=== PATIENT | female | born 1985 | race American Indian/Alaskan Native ===

== ENCOUNTER 2017-02-17 06:55 | Emergency (ER) | payer MEDICAID ==
[2017-02-17 06:56] VITALS: BMI 26.6
[2017-02-17] MEDS ORDERED: DiphenhydrAMINE 50 mg/ml Inj IVP STA (07:54)
--- NOTE | 2017-02-17 08:04 | ED PDOC ---
Arrival/HPI - General Chief Complaint: Headache Time Seen by Provider: 02/17/17 07:48 Historian: Patient - History of Present Illness Narrative History of Present Illness (Text): 02/17/17 07:51 Sendy Vega is a 31 year old female who presents to the emergency department complaining of a headache since this morning. Patient states that her headache is to the back of her head and has taken Tylenol which brought no relief. She also notes that she has no appetite. Patient endorses that she took Heroin and Cocaine 2 days ago but confirms that she has not taken any drugs today. Patient denies any fever, chills, chest pain, shortness of breath, nausea, vomiting, diarrhea, urinary symptoms, back pain, neck pain, or any other complaints. PMD: Dr. Zhu Time/Duration: 4-6 hours Symptom Onset: Gradual Symptom Course: Unchanged Activities at Onset: Rest Context: Home Past Medical History - Provider Review Nursing Documentation Reviewed: Yes - Infectious Disease Hx of Infectious Diseases: None - Tetanus Immunization Tetanus Immunization: Unknown - Reproductive Menopause: No - Past Medical History Past Medical History: No Previous - Cardiac Hx Hypertension: No - Pulmonary Hx Asthma: Yes - Neurological Hx Seizures: No - HEENT Hx HEENT Disorder: No - Endocrine/Metabolic Other/Comment: Prev h/o elevated prolactin - Hematological/Oncological Hx Cancer: No Hx Hepatitis C: Yes - Integumentary Hx Dermatological Disorder: No - Musculoskeletal/Rheumatological Hx Musculoskeletal Disorders: No Hx Falls: No - Gastrointestinal Hx Gastrointestinal Disorders: No - Genitourinary/Gynecological Hx Sexually Transmitted Diseases: No - Psychiatric Hx Anxiety: Yes Hx Bipolar Disorder: Yes Hx Depression: Yes Hx Substance Use: Yes (IVDU 1 day ago) - Anesthesia Hx Anesthesia: No - Suicidal Assessment Feels Threatened In Home Enviroment: No Family/Social History - Physician Review Nursing Documentation Reviewed: Yes Family/Social History: No Known Family HX Smoking Status: Light Smoker < 10 Cigarettes Daily Hx Alcohol Use: No Hx Substance Use: Yes (IVDU 1 day ago) Substance used: Percocet from the streets, heroin, cocaine Hx Substance Use Treatment: Yes Allergies/Home Meds Allergies/Adverse Reactions: Allergies No Known Allergies Allergy (Verified 02/17/17 07:09) Review of Systems - Review of Systems Constitutional: absent: Fevers, Night Sweats Eyes: absent: Vision Changes ENT: absent: Hearing Changes Respiratory: absent: SOB Cardiovascular: absent: Chest Pain Gastrointestinal: absent: Abdominal Pain, Diarrhea, Nausea, Vomiting Genitourinary Female: absent: Urine Output Changes Musculoskeletal: absent: Back Pain Skin: absent: Pruritis Neurological: Headache Endocrine: absent: Polyuria Hemo/Lymphatic: absent: Easy Bleeding Psychiatric: absent: Depression Physical Exam Vital Signs Reviewed: Yes Vital Signs Temp Pulse Resp BP Pulse Ox 02/17/17 08:40 97.9 F 74 19 112/74 98 02/17/17 07:52 86 16 121/66 96 02/17/17 06:59 99.0 F 102 H 16 129/90 96 Temperature: Afebrile Blood Pressure: Normal Pulse: Tachycardic Respiratory Rate: Normal Appearance: Positive for: Well-Appearing, Non-Toxic, Comfortable Pain Distress: None Mental Status: Positive for: Alert and Oriented X 3 - Systems Exam Head: No: Tenderness (No temporal head tenderness; Full ROM) Pupils: Present: PERRL, Other (No photophobia) Extroacular Muscles: Present: EOMI Conjunctiva: Present: Normal Mouth: Present: Moist Mucous Membranes Neck: Present: Other (No tenderness to neck). No: Meningeal Signs, MIDLINE TENDERNESS, Paraspinal Tenderness Respiratory/Chest: Present: Clear to Auscultation, Good Air Exchange. No: Respiratory Distress, Accessory Muscle Use Cardiovascular: Present: Regular Rate and Rhythm, Normal S1, S2. No: Murmurs Abdomen: Present: Normal Bowel Sounds. No: Tenderness, Distention, Peritoneal Signs Back: Present: Normal Inspection Upper Extremity: Present: Normal Inspection. No: Cyanosis, Edema Lower Extremity: Present: Normal Inspection. No: Edema Neurological: Present: GCS=15, CN II-XII Intact, Speech Normal, Motor Func Grossly Intact, Normal Sensory Function, Normal Cerebellar Funct, Norm Deep Tendon Reflexes, Gait Normal, Memory Normal, Normal 2Pt Descrimination Skin: Present: Warm, Dry, Normal Color. No: Rashes Psychiatric: Present: Alert, Oriented x 3, Normal Insight, Normal Concentration Medical Decision Making ED Course and Treatment: 02/17/17 07:51 Impression: 31 year old female complaining of a headache since this morning. Differential Diagnosis included but are not limited to: Tension Headache Plan: -- Benadryl, Reglan, Toradol -- Reassess and disposition Prior Visits: Notes and results from previous visits were reviewed. Patient last seen in the ED on 02/01/17 for a sore throat for one day. Patient was sent home. Progress Notes: 02/17/17 10:00 Patient is feeling better. No headache. Will discharge her home with PMD or clinic f/u. - Medication Orders Current Medication Orders: Discontinued Medications Diphenhydramine HCl (Benadryl) 50 mg IVP STAT STA Stop: 02/17/17 07:55 Last Admin: 02/17/17 08:17 Dose: 50 MG IVP Administration Document 02/17/17 08:17 GMI (Rec: 02/17/17 08:17 [facility]MI [email or web address]) Charges for Administration # of IVP Administrations 1 Ketorolac Tromethamine (Toradol) 15 mg IVP STAT STA Stop: 02/17/17 07:55 Last Admin: 02/17/17 08:18 Dose: 15 MG IVP Administration Document 02/17/17 08:18 GMI (Rec: 02/17/17 08:18 [email or web address]) Charges for Administration # of IVP Administrations 1 Metoclopramide HCl (Reglan) 10 mg IVP STAT STA Stop: 02/17/17 07:55 Last Admin: 02/17/17 08:13 Dose: 10 MG IVP Administration Document 02/17/17 08:13 GMI (Rec: 02/17/17 08:17 [email or web address]) Charges for Administration # of IVP Administrations 1 - Scribe Statement The provider has reviewed the documentation as recorded by the Johnnie Elias Provider Scribe Attestation: All medical record entries made by the Kirstinibosman were at my direction and personally dictated by me. I have reviewed the chart and agree that the record accurately reflects my personal performance of the history, physical exam, medical decision making, and the department course for this patient. I have also personally directed, reviewed, and agree with the discharge instructions and disposition. Disposition/Present on Arrival - Present on Arrival Any Indicators Present on Arrival: No History of DVT/PE: No History of Uncontrolled Diabetes: No Urinary Catheter: No History of Decub. Ulcer: No History Surgical Site Infection Following: None - Disposition Have Diagnosis and Disposition been Completed?: Yes Diagnosis: Headache Disposition: HOME/ ROUTINE Disposition Time: 10:01 Patient Plan: Discharge Patient Problems: Current Active Problems Problem Status Diagnosed Headache Acute Lethargy Acute Condition: IMPROVED Discharge Instructions (ExitCare): Acute Headache (DC) Additional Instructions: Ms Vega, thank you for letting us take care of you today. Your provider was Dr. Clark. You were treated for Headache. The emergency medical care you received today was directed at your acute symptoms. If you were prescribed any medication , please fill it and take as directed. It may take several days for your symptoms to resolve. Return to the Emergency Department if your symptoms worsen , do not improve, or if you have any other problems. Please contact your doctor or call one of the physicians/clinics you have been referred to that are listed on the Patient Visit Information form that is included in your discharge packet. Bring any paperwork you were given at discharge with you along with any medications you are taking to your follow up visit. Our treatment cannot replace ongoing medical care by a primary care provider (PCP) outside of the emergency department. Thank you for allowing the [facility] team to be part of your care today. If you had an X-Ray or CT scan: A Radiologist will review the ED reading if any change in treatment is needed we will contact you. If you had a blood, urine, or wound culture: It will take several days for the results, if any change in treatment is needed we will contact you. If you had an STI test: It will take 48 hours for the results. Please call after 1 week if you have not heard back. Prescriptions: Ibuprofen [Motrin] 600 mg PO Q6 PRN #30 tab PRN Reason: Pain, Moderate (4-7) Referrals: PCP,NO [Primary Care Provider] - [facility], [Non-Staff] - Follow up with primary [facility] [place] [Outside] - Follow up with primary Forms: WORK NOTE
[2017-02-17 08:41] VITALS: TEMP 97.9
[2017-02-17 10:11] VITALS: BP 101/67; PULSE 78; RESP 18; O2SAT 99
== END 2017-02-17 10:11 | disposition home or self-care (01) ==
LOC: ED 06:55
DX: R51 Headache (principal)
CPT/HCPCS: 96374; 96375; 99285; J1200; J1885; J2765

== ENCOUNTER 2017-03-21 05:55 | Inpatient (IN) | payer MEDICAID ==
[2017-03-21 05:56] VITALS: BMI 26.6
--- NOTE | 2017-03-21 06:25 | ED PDOC ---
Arrival/HPI - General Chief Complaint: Substance Abuse Time Seen by Provider: 03/21/17 06:07 - History of Present Illness Narrative History of Present Illness (Text): 03/21/17 06:22 Patient presents complaining of intentional overdose in a suicidal gesture by taking gabapentin and oxycodone unknown amount of pills around midnight she denies any chest pain or shortness of breath or abdominal pain or fever or chills Past Medical History - Provider Review Nursing Documentation Reviewed: Yes - Travel History Have you recently traveled outside [place] w/in the past 3 mons?: No - Infectious Disease Hx of Infectious Diseases: None - Tetanus Immunization Tetanus Immunization: Unknown - Past Medical History Past Medical History: No Previous - Cardiac Hx Hypertension: No - Pulmonary Hx Asthma: Yes - Neurological Hx Seizures: No - HEENT Hx HEENT Disorder: No - Endocrine/Metabolic Other/Comment: Prev h/o elevated prolactin - Hematological/Oncological Hx Cancer: No Hx Hepatitis C: Yes - Integumentary Hx Dermatological Disorder: No - Musculoskeletal/Rheumatological Hx Musculoskeletal Disorders: No Hx Falls: No - Gastrointestinal Hx Gastrointestinal Disorders: No - Genitourinary/Gynecological Hx Sexually Transmitted Diseases: No - Psychiatric Hx Anxiety: Yes Hx Bipolar Disorder: Yes Hx Depression: Yes Hx Substance Use: Yes (IVDU 1 day ago) - Anesthesia Hx Anesthesia: No - Suicidal Assessment Feels Threatened In Home Enviroment: No Family/Social History - Physician Review Nursing Documentation Reviewed: Yes Family/Social History: No Known Family HX Smoking Status: Light Smoker < 10 Cigarettes Daily Hx Alcohol Use: No Hx Substance Use: Yes (IVDU 1 day ago) Substance used: Percocet from the streets, heroin, cocaine Hx Substance Use Treatment: Yes Allergies/Home Meds Allergies/Adverse Reactions: Allergies No Known Allergies Allergy (Verified 03/21/17 09:17) Home Medications: Home Meds Medication Instructions Recorded Confirmed Alprazolam [Xanax] 0.5 mg PO QID 03/21/17 03/21/17 Gabapentin [Neurontin] 300 mg PO TID 03/21/17 03/21/17 Methadone HCl [Methadose] 50 mg PO DAILY 03/21/17 03/21/17 Paliperidone Palmitate [Invega 156 mg IM Q30D 03/21/17 03/21/17 Sustenna] Risperidone 2 mg PO BID 03/21/17 03/21/17 Review of Systems - Review of Systems Constitutional: Normal Eyes: Normal ENT: Normal Respiratory: Normal Cardiovascular: Normal Gastrointestinal: Normal Genitourinary Female: Normal Musculoskeletal: Normal Skin: Normal Neurological: absent: Dizziness Endocrine: Normal Hemo/Lymphatic: Normal Psychiatric: Suicidal Ideation Physical Exam Vital Signs Reviewed: Yes Vital Signs Temp Pulse Resp BP Pulse Ox 03/21/17 14:19 98.2 F 87 16 111/63 99 03/21/17 13:35 92 H 18 97/72 L 98 03/21/17 12:00 85 19 107/63 99 03/21/17 10:42 92 H 18 114/73 97 03/21/17 09:38 97 H 17 120/69 95 03/21/17 09:03 97 H 16 114/68 96 03/21/17 08:26 75 17 124/79 99 03/21/17 07:23 71 16 124/70 97 03/21/17 06:22 99.8 F H 113 H 24 133/81 98 Temperature: Afebrile Blood Pressure: Normal Pulse: Regular Respiratory Rate: Normal Appearance: Positive for: Well-Appearing, Non-Toxic, Comfortable Pain Distress: None Mental Status: Positive for: Lethargic - Systems Exam Head: Present: Atraumatic, Normocephalic Pupils: Present: PERRL Extroacular Muscles: Present: EOMI Conjunctiva: Present: Normal Mouth: Present: Moist Mucous Membranes Neck: Present: Normal Range of Motion Respiratory/Chest: Present: Clear to Auscultation, Good Air Exchange. No: Respiratory Distress, Accessory Muscle Use Cardiovascular: Present: Regular Rate and Rhythm, Normal S1, S2. No: Murmurs Abdomen: Present: Normal Bowel Sounds. No: Tenderness, Distention, Peritoneal Signs Back: Present: Normal Inspection Upper Extremity: Present: Normal Inspection. No: Cyanosis, Edema Lower Extremity: Present: Normal Inspection. No: Edema Neurological: Present: GCS=15, CN II-XII Intact, Speech Normal Skin: Present: Warm, Dry, Normal Color. No: Rashes Psychiatric: Present: Alert, Oriented x 3, Normal Insight, Normal Concentration , Suicidal Ideation Medical Decision Making ED Course and Treatment: 03/22/17 00:[address] gambino accepts case case d/w dr burks will have icu consult, most likely accept case for lethargy - Lab Interpretations Lab Results: 03/21/17 06:35 03/21/17 06:35 Lab Results 03/21/17 06:35: Alcohol, Quantitative < 10 03/21/17 06:35: Salicylates < 1 L, Acetaminophen < 10.0 L 03/21/17 06:35: Urine Opiates Screen Positive H, Urine Methadone Screen Positive H, Ur Barbiturates Screen Negative, Ur Phencyclidine Scrn Negative, Ur Amphetamines Screen Negative, U Benzodiazepines Scrn Negative, U Oth Cocaine Metabols Negative, U Cannabinoids Screen Negative 03/21/17 06:35: Sodium 138, Potassium 4.1, Chloride 101, Carbon Dioxide 28, Anion Gap 13, BUN 17, Creatinine 0.8, Est GFR ( Amer) > 60, Est GFR (Non- Af Amer) > 60, Random Glucose 139 H, Calcium 8.8, Total Bilirubin 0.4, AST 34, ALT 42, Alkaline Phosphatase 73, Total Protein 7.6, Albumin 3.8, Globulin 3.8, Albumin/Globulin Ratio 1.0 L 03/21/17 06:35: Urine Color Yellow, Urine Appearance Clear, Urine pH 7.0, Ur Specific [place] 1.010, Urine Protein Negative, Urine Glucose (UA) Negative, Urine Ketones Negative, Urine Blood Small H, Urine Nitrate Negative, Urine Bilirubin Negative, Urine Urobilinogen 0.2, Ur Leukocyte Esterase Negative, Urine RBC 1 - 3, Urine WBC 1 - 3, Ur Epithelial Cells 3 - 4, Urine Bacteria Few , Urine HCG, Qual Negative 03/21/17 06:35: WBC 7.9, RBC 4.71, Hgb 11.0 L, Hct 35.6 L, MCV 75.6 L, MCH 23.4 L, MCHC 30.9 L, RDW 14.0, Plt Count 242, MPV 9.1, Gran % 67.8, Lymph % (Auto) 22.3, [place] % (Auto) 7.8 H, Eos % (Auto) 1.8, Baso % (Auto) 0.3, Gran # 5.33, Lymph # 1.8, [place] # 0.6, Eos # 0.1, Baso # 0.02 - Medication Orders Current Medication Orders: Sodium Chloride (Sodium Chloride 0.9%) 1,000 mls @ 150 mls/hr IV .Q6H40M TOM Last Admin: 03/21/17 22:36 Dose: Not Given Non-Admin Reason: Patient Refused Lorazepam (Ativan) 2 mg IM Q6H PRN; Protocol PRN Reason: Anxiety Last Admin: 03/21/17 20:55 Dose: 2 mg Re-Assess: Reassess Psych Meds Document 03/21/17 21:25 EMANUEL (Rec: 03/21/17 22:35 EMANUEL [id number]) Reassess Psych Med Ineffective-LIP notifed Pantoprazole Sodium (Protonix Ec Tab) 40 mg PO 0630 [facility] Ziprasidone (Geodon Inj) 20 mg IM Q6H PRN; Protocol PRN Reason: Agitation Last Admin: 03/21/17 22:19 Dose: 20 mg Discontinued Medications Charcoal (Actidose 50 Gm/240 Ml Susp) 50 gm PO STAT STA Stop: 03/21/17 06:59 Last Admin: 03/21/17 07:36 Dose: 50 gm Sodium Chloride (Sodium Chloride 0.9%) 1,000 mls @ 999 mls/hr IV .Q1H1M STA Stop: 03/21/17 13:13 Last Admin: 03/21/17 12:15 Dose: 999 mls/hr Methadone HCl (Methadone) 20 mg PO ONCE ONE Stop: 03/21/17 17:53 Last Admin: 03/21/17 18:20 Dose: Methadone HCl (Methadone) 20 mg PO ONCE ONE Stop: 03/21/17 18:16 Last Admin: 03/21/17 18:11 Dose: 20 mg Re-Assess: MAR Pain Assessment Document 03/21/17 19:11 CASSI (Rec: 03/21/17 19:32 CASSI [facility] [id number] Pain Reassessment Is this a pain reassessment? Yes Sleep Is patient sleeping during reassessment? No Presence of Pain Presence of Pain No Naloxone HCl (Narcan) 0.4 mg IVP STAT STA Stop: 03/21/17 06:58 Last Admin: 03/21/17 07:21 Dose: 0.4 mg Pneumococcal Polyvalent Vaccine (Pneumovax 23 Vaccine) 0.5 ml IM .ONCE ONE Stop: 03/21/17 17:05 Disposition/Present on Arrival - Present on Arrival Any Indicators Present on Arrival: No History of DVT/PE: No History of Uncontrolled Diabetes: No Urinary Catheter: No History of Decub. Ulcer: No History Surgical Site Infection Following: None - Disposition Have Diagnosis and Disposition been Completed?: Yes Diagnosis: Drug overdose Disposition: HOSPITALIZED Disposition Time: 07:30 Condition: FAIR
[2017-03-21 06:44] LABS: ADD MANUAL DIFF? NO
[2017-03-21 06:51] LABS: URINE BILIRUBIN NEGATIVE (NEGATIVE); URINE BLOOD SMALL (NEGATIVE); URINE GLUCOSE (UA) NEGATIVE (NEGATIVE); URINE KETONE NEGATIVE (NEGATIVE); URINE LEUKOCYTE ESTERASE NEGATIVE Leu/uL (NEGATIVE); URINE PROTEIN NEGATIVE mg/dL (<30 mg/dL); URINE UROBILINOGEN 0.2 E.U./dL (<1 E.U./dL)
[2017-03-21] MEDS ORDERED: Naloxone 0.4 mg/ml Inj (Adult) IVP STA (06:57)
[2017-03-21] MEDS ORDERED: Charcoal 50 gm/240 ml Susp PO STA (06:58)
[2017-03-21 07:01] LABS: URINE APPEARANCE CLEAR (CLEAR); URINE COLOR YELLOW (YELLOW)
[2017-03-21 07:02] LABS: ALKALINE PHOSPHATASE 73 U/L (38-133); ALT/SGPT 42 U/L (7-56); AST/SGOT 34 U/L (15-39); BILIRUBIN,TOTAL 0.4 mg/dL (0.2-1.3); BLOOD UREA NITROGEN 17 mg/dL (7-21); CALCIUM 8.8 mg/dL (8.4-10.5); CARBON DIOXIDE 28 mmol/L (21-33); CHLORIDE 101 mmol/L (98-107); GFR AFRICAN-AMERICAN > 60; GLUCOSE,RANDOM 139 mg/dL (70-110); POTASSIUM 4.1 mmol/L (3.6-5.0); SODIUM 138 mmol/L (132-148); TOTAL PROTEIN 7.6 g/dL (5.8-8.3)
[2017-03-21 07:05] LABS: URINE BACTERIA FEW (NEG)
[2017-03-21 07:12] LABS: BASO # 0.02 K/mm3 (0.0-2.0); BASO % 0.3 % (0.0-3.0); EOS # 0.1 (0.0-0.7); EOS % 1.8 % (1.5-5.0); GRAN # 5.33 (1.4-6.5); GRAN % 67.8 % (50.0-68.0); HEMATOCRIT 35.6 % (36.0-48.0); LYMPH # 1.8 (1.2-3.4); LYMPH % 22.3 % (22.0-35.0); MEAN CELL VOLUME 75.6 fL (80.0-105.0); MEAN CORPUSCULAR HEMOGLOBIN 23.4 pg (25.0-35.0); MEAN CORPUSCULAR HGB CONC 30.9 g/dl (31.0-37.0); MEAN PLATELET VOLUME 9.1 fl (7.0-11.0); MONO # 0.6 (0.1-0.6); MONO % 7.8 % (1.0-6.0); PLATELET COUNT 242 10^3/uL (120.0-450.0); WHITE BLOOD COUNT 7.9 10^3/ul (4.5-11.0)
[2017-03-21 09:12] LABS: PHOSPHOROUS 3.4 mg/dL (2.5-4.5)
[2017-03-21 09:30] LABS: TROPONIN I < 0.01 ng/mL
--- NOTE | 2017-03-21 10:44 | CP.PCM.HP ---
<Lonnie Dee - Last Filed: 03/21/17 11:01> History of Present Illness - History of Present Illness History of Present Illness: 31 F with pmh of bipolar disorder, Hepatiis C, STD's, opioid use disorder, cocaine use, amphetamine use, depression with suicidal ideation presents with drug overdose with intent suicide. Patient is very lethargic therefore HPI is very limited and taken from prior notes and nurses. As per nurses she overdosed on Gabapentin and oxycodone around 12am with intent suicide. She than called the ambulance and was brought here to the ED fully alert walking into the ED. She subsequently turned very lethargic. When I attempted to ask her what she overdosed on she said "some pills and Ambien." In the ED CBC, CMP and urine tox was done. Utox was positive for Opiates and Methadone, and negative for Acetaminophen and Salicylates. Hemodynamically stable. EKG shows sinus tachy 104 BPM. 1 dose of Activated charcoal and Narcan was administered. Obtained from prior records on 09/01/16: PMH: bipolar disorder, opioid use disorder, cocaine use, amphetamine use, depression with suicidal ideation ALLERGY: NKDA MEDS:Denies HOSPITALIZATION: She was hospitalized multiple times in the past. FAMILY HISTORY: Not significant SOCIAL HISTORY: Smokes 5 cig/ day. Drinks alcohol but cannot quantify. Use heroin, cocaine and amphetamine but unsure how much. Present on Admission - Present on Admission Any Indicators Present on Admission: No Review of Systems - Review of Systems Systems not reviewed;Unavailable: Intoxicated Past Patient History - Infectious Disease Hx of Infectious Diseases: None - Tetanus Immunizations Tetanus Immunization: Unknown - Past Medical History & Family History Past Medical History?: Yes - Past Social History Smoking Status: Light Smoker < 10 Cigarettes Daily - CARDIAC Hx Hypertension: No - PULMONARY Hx Asthma: Yes - NEUROLOGICAL Hx Seizures: No - HEENT Hx HEENT Problems: No - ENDOCRINE/METABOLIC Other/Comment: Prev h/o elevated prolactin - HEMATOLOGICAL/ONCOLOGICAL Hx Cancer: No Hx Hepatitis C: Yes - INTEGUMENTARY Hx Dermatological Problems: No - MUSCULOSKELETAL/RHEUMATOLOGICAL Hx Musculoskeletal Disorders: No Hx Falls: No - GASTROINTESTINAL Hx Gastrointestinal Disorders: No - GENITOURINARY/GYNECOLOGICAL Hx Sexually Transmitted Disorders: No - PSYCHIATRIC Hx Anxiety: Yes Hx Bipolar Disorder: Yes Hx Depression: Yes Hx Substance Use: Yes (IVDU 1 day ago) - SURGICAL HISTORY Hx Surgeries: No - ANESTHESIA Hx Anesthesia: No Meds Allergies/Adverse Reactions: Allergies Allergy/AdvReac Type Severity Reaction Status Date / Time No Known Allergies Allergy Verified 03/21/17 09:17 Physical Exam - Constitutional Appears: No Acute Distress - Head Exam Head Exam: ATRAUMATIC, NORMAL INSPECTION, NORMOCEPHALIC - Eye Exam Eye Exam: EOMI, Normal appearance, PERRL Pupil Exam: NORMAL ACCOMODATION, PERRL. absent: Miosis - ENT Exam ENT Exam: Mucous Membranes Moist, Normal Exam - Neck Exam Neck exam: Positive for: Normal Inspection - Respiratory Exam Respiratory Exam: Clear to Auscultation Bilateral, NORMAL BREATHING PATTERN. absent: Rales, Wheezes - Cardiovascular Exam Cardiovascular Exam: REGULAR RHYTHM, RRR, +S1, +S2 - GI/Abdominal Exam GI & Abdominal Exam: Normal Bowel Sounds, Soft. absent: Tenderness - Extremities Exam Extremities exam: Positive for: normal inspection - Back Exam Back exam: NORMAL INSPECTION - Neurological Exam Neurological exam: Altered - Psychiatric Exam Psychiatric exam: Suicidal Ideation - Skin Skin Exam: Dry, Intact, Normal Color, Warm Results - Vital Signs Recent Vital Signs: Last Vital Signs Temp 99.8 F H 03/21/17 06:22 Pulse 97 H 03/21/17 09:38 Resp 17 03/21/17 09:38 BP 120/69 03/21/17 09:38 Pulse Ox 95 03/21/17 09:38 - Labs Result Diagrams: 03/21/17 06:35 03/21/17 06:35 Labs: Laboratory Results - last 24 hr 03/21/17 03/21/17 08:50 08:50 Phosphorus 3.4 Magnesium 2.0 Troponin I < 0.01 TSH 3rd Generation 0.94 Assessment & Plan - Assessment and Plan (Free Text) Assessment: 31 F with pmh of bipolar disorder, Hepatiis C, STD's, opioid use disorder, cocaine use, amphetamine use, depression with suicidal ideation presents with drug overdose with intent suicide. 1. Drug Overdose - with Gabapentin & Oxycodone & Ambien? - Poison control was called and spoke to [employer] which recommended activated charcoal and Narcan with supportive care - Activated charcoal and Narcan was administered in the ED - Activated charcoal - aspiration precautions - NPO - Psychiatry consulted for recs - Neuro checks and vitals Q2H - EKG: Sinus tachy 104 bpm - 1:1 observation for suicidal ideation - Daily labs 2. GI/DVT ppx - NPO and SCDs Case and plan was seen, reviewed, and discussed in detail with Dr Stark <Cristofer Stark - Last Filed: 03/21/17 15:59> Results - Vital Signs Recent Vital Signs: Last Vital Signs Temp 98.2 F 03/21/17 14:19 Pulse 87 03/21/17 14:19 Resp 16 03/21/17 14:19 BP 111/63 03/21/17 14:19 Pulse Ox 99 03/21/17 14:19 - Labs Result Diagrams: 03/21/17 06:35 03/21/17 06:35 Labs: Laboratory Results - last 24 hr 03/21/17 03/21/17 08:50 08:50 Phosphorus 3.4 Magnesium 2.0 Troponin I < 0.01 TSH 3rd Generation 0.94 Attending/Attestation - Attestation I have personally seen and examined this patient.: Yes I have fully participated in the care of the patient.: Yes I have reviewed all pertinent clinical information: Yes Notes (Text): I have seen and examined patient at bedside. Agree with the above note with the addition/ exception of the following: This is 31 year old female with history of bipolar disorder, high risk sexual behavior, opioid use, cocaine use, amphetamine use, depression with suicidal ideation who presented with drug overdose today (suicide attempt). Patient took unknown amount of unknown pills. UDS revealed opiates and methadone. EKG revealed ST. Patient appears somnolent but arousable. Poison control was contacted. She was given activated charcoal and nacan in ED. 1:1 observation started. Will consult psych. Her BP is slightly on the lower side, will give her IVF. Upon discharge patient will follow up with Dr Maverick Knapp.
[2017-03-21] MEDS ORDERED: Sodium Chloride 0.9% 1,000 ML IV STA (12:13)
--- NOTE | 2017-03-21 12:52 | CARD ---
APPROVED REPORT EKG Measurement Heart [id number] <Conclusion> Sinus tachycardia Otherwise normal ECG
--- NOTE | 2017-03-21 13:33 | CP.PCM.CON ---
<Sophie Rockwell - Last Filed: 03/21/17 17:27> History of Present Illness - History of Present Illness History of Present Illness: PGY-[address] 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 She took methadone yesterday morning at [facility]. On ED arrival, pt could ambulate, but mentation declined and remained lethargic until mid-morning. Pt was examined at noon, AAOx3, stating that she was hungry and requested food. ROS (+) chronic epigastric abdominal pain with globus sensation when eating. Denies RESENDEZ, dizziness, Chest Pain, SOB, N/V/D/C, dysuria PMH Bipolar with anxiety Hx of increased prolactin Hep C never been treated PSH None OBGYN 7 times. 4 living children. 3 first trimester loss, natural causes Sexually active with same male partner Denies abnormal vaginal bleed, itch, disharges FDLMP 1 year ago. Pt on IM contraception from [facility] ? Abnormal pap or STD SH 1/2 ppd x 3 years ETOH @ 2-3 month Percocet from steret Heroine, cocaine, amputation All NKDA Med Contraception IM Past Patient History - Infectious Disease Hx of Infectious Diseases: None - Tetanus Immunizations Tetanus Immunization: Unknown - Past Medical History & Family History Past Medical History?: Yes - Past Social History Smoking Status: Light Smoker < 10 Cigarettes Daily - CARDIAC Hx Hypertension: No - PULMONARY Hx Asthma: Yes - NEUROLOGICAL Hx Seizures: No - HEENT Hx HEENT Problems: No - ENDOCRINE/METABOLIC Other/Comment: Prev h/o elevated prolactin - HEMATOLOGICAL/ONCOLOGICAL Hx Cancer: No Hx Hepatitis C: Yes - INTEGUMENTARY Hx Dermatological Problems: No - MUSCULOSKELETAL/RHEUMATOLOGICAL Hx Musculoskeletal Disorders: No Hx Falls: No - GASTROINTESTINAL Hx Gastrointestinal Disorders: No - GENITOURINARY/GYNECOLOGICAL Hx Sexually Transmitted Disorders: No - PSYCHIATRIC Hx Substance Use: Yes - SURGICAL HISTORY Hx Surgeries: No - ANESTHESIA Hx Anesthesia: No Meds Allergies/Adverse Reactions: Allergies Allergy/AdvReac Type Severity Reaction Status Date / Time No Known Allergies Allergy Verified 03/21/17 09:17 Physical Exam - Constitutional Appears: No Acute Distress - Head Exam Head Exam: ATRAUMATIC, NORMOCEPHALIC - Eye Exam Eye Exam: EOMI, Normal appearance, PERRL Pupil Exam: NORMAL ACCOMODATION - ENT Exam ENT Exam: Mucous Membranes Moist - Neck Exam Neck exam: Positive for: Normal Inspection. Negative for: Meningismus - Respiratory Exam Respiratory Exam: Clear to Auscultation Bilateral, NORMAL BREATHING PATTERN. absent: Rales, Rhonchi, Wheezes - Cardiovascular Exam Cardiovascular Exam: REGULAR RHYTHM, +S1, +S2. absent: Systolic Murmur - GI/Abdominal Exam GI & Abdominal Exam: Normal Bowel Sounds, Soft. absent: Tenderness Additional comments: No earl, no rovings, - Extremities Exam Extremities exam: Positive for: normal capillary refill, pedal pulses present. Negative for: calf tenderness, pedal edema - Back Exam Back exam: absent: CVA tenderness (L), CVA tenderness (R), paraspinal tenderness - Neurological Exam Neurological exam: Alert, CN II-XII Intact, Oriented x3, Reflexes Normal Additional comments: AAO x 3 CN 2-12 intact Rapid alternative movement intact Sensation intact Motor 5/5 all extremities - Psychiatric Exam Psychiatric exam: Anxious - Skin Skin Exam: Dry, Normal Color, Warm Additional comments: scars of cutting b/l anterior forearms Results - Vital Signs Recent Vital Signs: Last Vital Signs Temp 99.8 F H 03/21/17 06:22 Pulse 85 03/21/17 12:00 Resp 19 03/21/17 12:00 BP 107/63 03/21/17 12:00 Pulse Ox 99 03/21/17 12:00 - Labs Result Diagrams: 03/21/17 06:35 03/21/17 06:35 Labs: Laboratory Results - last 24 hr 03/21/17 03/21/17 08:50 08:50 Phosphorus 3.4 Magnesium 2.0 Troponin I < 0.01 TSH 3rd Generation 0.94 Assessment & Plan - Assessment and Plan (Free Text) Plan: A/P 31 F on Methadone overdosed on gabapentin (prescribed for patient), and on oxycontin (from mom). UDS (+) opirate and methadone. Negative on acetaminophen, salicylate, cocaine. Last used cocaine 2 weeks ago. ICU was consulted on lethargic and AMS. Pt has regain baseline mentation during examination. Pt is AAOx3, vital stable, negative neural exam. It is likely that pt will be able to secure airway given sustained and continual mentation improvement. ICU team will sign off. - Date & Time Date: 03/21/17 Time: 13:00 <Melony Stark MD - Last Filed: 03/22/17 09:03> Meds - Medications Medications: Current Medications Sodium Chloride (Sodium Chloride 0.9%) 1,000 mls @ 150 mls/hr IV .[id number] [facility] Last Admin: 03/22/17 05:43 Dose: Not Given Lorazepam (Ativan) 2 mg IM Q6H PRN; Protocol PRN Reason: Anxiety Last Admin: 03/21/17 20:55 Dose: 2 mg Pantoprazole Sodium (Protonix Ec Tab) 40 mg PO 0630 [facility] Last Admin: 03/22/17 05:43 Dose: 40 mg Ziprasidone (Geodon Inj) 20 mg IM Q6H PRN; Protocol PRN Reason: Agitation Last Admin: 03/22/17 03:51 Dose: 20 mg Results - Vital Signs Recent Vital Signs: Last Vital Signs Temp 98.2 F 03/21/17 16:50 Pulse 87 03/21/17 16:50 Resp 16 03/21/17 16:50 BP 111/63 03/21/17 16:50 Pulse Ox 99 03/21/17 14:19 - Labs Result Diagrams: 03/21/17 06:35 03/21/17 06:35 Labs: Laboratory Results - last 24 hr 03/21/17 03/21/17 08:50 08:50 Phosphorus 3.4 Magnesium 2.0 Troponin I < 0.01 TSH 3rd Generation 0.94 Attending/Attestation - Attestation I have personally seen and examined this patient.: Yes I have fully participated in the care of the patient.: Yes I have reviewed all pertinent clinical information: Yes Notes (Text): 03/22/17 09:02 31 y/o F seen in the ER . Suicide attempt. OD from multiple drugs. Was difficult to arrouse earlier in the ER, when ICu eval was done, pt ws aao x 3 and without complaints. Pt was seen several hours later and no new clinical findings needing ICU Psych eval to be done. EKG w/o new findings such as Qt prolongation etc. cc time 55 min
[2017-03-21 14:19] VITALS: BP 111/63; PULSE 87; RESP 16; TEMP 98.2; O2SAT 99
[2017-03-21] MEDS: Sodium Chloride 0.9% 1,000 ML IV SCH ×2 (14:30→22:36)
[2017-03-21] MEDS ORDERED: Pneumococcal 23-Valent Vaccine IM ONE (17:04)
[2017-03-22] MEDS: Sodium Chloride 0.9% 1,000 ML IV SCH ×2 (05:43→12:32)
[2017-03-22] MEDS ORDERED: Pantoprazole 40 mg EC Tab PO SCH (06:30)
--- NOTE | 2017-03-22 12:52 | CP.PCM.DIS ---
<Lonnie Dee - Last Filed: 03/22/17 12:44> Provider - Provider Date of Admission: 03/21/17 07:53 Attending physician: Cristofer Stark MD Primary care physician: Kiya Profile Required Consults: psychiatry Time Spent in preparation of Discharge (in minutes): 45 Hospital Course - Lab Results Lab Results: Most Recent Lab Values WBC 7.9 10^3/ul (4.5-11.0) 03/21/17 06:35 RBC 4.71 10^6/uL (3.5-6.1) 03/21/17 06:35 Hgb 11.0 gm/dL (12.0-16.0) L 03/21/17 06:35 Hct 35.6 % (36.0-48.0) L 03/21/17 06:35 MCV 75.6 fL (80.0-105.0) L 03/21/17 06:35 MCH 23.4 pg (25.0-35.0) L 03/21/17 06:35 MCHC 30.9 g/dl (31.0-37.0) L 03/21/17 06:35 RDW 14.0 % (11.5-14.5) 03/21/17 06:35 Plt Count 242 10^3/uL (120.0-450.0) 03/21/17 06:35 MPV 9.1 fl (7.0-11.0) 03/21/17 06:35 Gran % 67.8 % (50.0-68.0) 03/21/17 06:35 Lymph % (Auto) 22.3 % (22.0-35.0) 03/21/17 06:35 Whitfield % (Auto) 7.8 % (1.0-6.0) H 03/21/17 06:35 Eos % (Auto) 1.8 % (1.5-5.0) 03/21/17 06:35 Baso % (Auto) 0.3 % (0.0-3.0) 03/21/17 06:35 Gran # 5.33 (1.4-6.5) 03/21/17 06:35 Lymph # 1.8 (1.2-3.4) 03/21/17 06:35 Whitfield # 0.6 (0.1-0.6) 03/21/17 06:35 Eos # 0.1 (0.0-0.7) 03/21/17 06:35 Baso # 0.02 K/mm3 (0.0-2.0) 03/21/17 06:35 Sodium 138 mmol/L (132-148) 03/21/17 06:35 Potassium 4.1 mmol/L (3.6-5.0) 03/21/17 06:35 Chloride 101 mmol/L (98-107) 03/21/17 06:35 Carbon Dioxide 28 mmol/L (21-33) 03/21/17 06:35 Anion Gap 13 (10-20) 03/21/17 06:35 BUN 17 mg/dL (7-21) 03/21/17 06:35 Creatinine 0.8 mg/dL (0.5-1.4) 03/21/17 06:35 Est GFR ( Amer) > 60 03/21/17 06:35 Est GFR (Non-Af Amer) > 60 03/21/17 06:35 Random Glucose 139 mg/dL (70-110) H 03/21/17 06:35 Calcium 8.8 mg/dL (8.4-10.5) 03/21/17 06:35 Phosphorus 3.4 mg/dL (2.5-4.5) 03/21/17 08:50 Magnesium 2.0 mg/dL (1.7-2.2) 03/21/17 08:50 Total Bilirubin 0.4 mg/dL (0.2-1.3) 03/21/17 06:35 AST 34 U/L (15-39) 03/21/17 06:35 ALT 42 U/L (7-56) 03/21/17 06:35 Alkaline Phosphatase 73 U/L (38-133) 03/21/17 06:35 Troponin I < 0.01 ng/mL 03/21/17 08:50 Total Protein 7.6 g/dL (5.8-8.3) 03/21/17 06:35 Albumin 3.8 g/dL (3.0-4.8) 03/21/17 06:35 Globulin 3.8 gm/dL 03/21/17 06:35 Albumin/Globulin Ratio 1.0 (1.1-1.8) L 03/21/17 06:35 TSH 3rd Generation 0.94 mIU/mL (0.46-4.68) 03/21/17 08:50 Urine Color Yellow (YELLOW) 03/21/17 06:35 Urine Appearance Clear (CLEAR) 03/21/17 06:35 Urine pH 7.0 (4.7-8.0) 03/21/17 06:35 Ur Specific Tuckerman 1.010 (1.005-1.035) 03/21/17 06:35 Urine Protein Negative mg/dL (<30 mg/dL) 03/21/17 06:35 Urine Glucose (UA) Negative mg/dL (NEGATIVE) 03/21/17 06:35 Urine Ketones Negative mg/dL (NEGATIVE) 03/21/17 06:35 Urine Blood Small (NEGATIVE) H 03/21/17 06:35 Urine Nitrate Negative (NEGATIVE) 03/21/17 06:35 Urine Bilirubin Negative (NEGATIVE) 03/21/17 06:35 Urine Urobilinogen 0.2 E.U./dL (<1 E.U./dL) 03/21/17 06:35 Ur Leukocyte Esterase Negative Felisha/uL (NEGATIVE) 03/21/17 06:35 Urine RBC 1 - 3 /hpf (0-2) 03/21/17 06:35 Urine WBC 1 - 3 /hpf (0-6) 03/21/17 06:35 Ur Epithelial Cells 3 - 4 /hpf (0-5) 03/21/17 06:35 Urine Bacteria Few (NEG) 03/21/17 06:35 Urine HCG, Qual Negative (NEGATIVE) 03/21/17 06:35 Salicylates < 1 mg/dL (2.0-20.0) L 03/21/17 06:35 Urine Opiates Screen Positive (NEGATIVE) H 03/21/17 06:35 Urine Methadone Screen Positive (NEGATIVE) H 03/21/17 06:35 Acetaminophen < 10.0 ug/ml (10.0-20.0) L 03/21/17 06:35 Ur Barbiturates Screen Negative (NEGATIVE) 03/21/17 06:35 Ur Phencyclidine Scrn Negative (NEGATIVE) 03/21/17 06:35 Ur Amphetamines Screen Negative (NEGATIVE) 03/21/17 06:35 U Benzodiazepines Scrn Negative (NEGATIVE) 03/21/17 06:35 U Oth Cocaine Metabols Negative (NEGATIVE) 03/21/17 06:35 U Cannabinoids Screen Negative (NEGATIVE) 03/21/17 06:35 Alcohol, Quantitative < 10 mg/dL (0-10) 03/21/17 06:35 - Hospital Course Hospital Course: 31 F with pmh of bipolar disorder, Hepatiis C, STD's, opioid use disorder, cocaine use, amphetamine use, depression with suicidal ideation presents with drug overdose with questionable intent suicide. Patient was initially lethargic therefore HPI was limited in the ED and taken from prior notes and nurses. As per nurses she overdosed on Gabapentin, oxycodone, and Ambien? around 12am with questionable intent suicide. She subsequently turned more lethargic. When I attempted to ask her what she overdosed on she said "some pills and Ambien." In the ED CBC, CMP was done. Utox was positive for Opiates and Methadone, and negative for Acetaminophen and Salicylates. She was hemodynamically stable. EKG showed sinus tach 104 BPM. Poison control was called which recommended activated charcoal and Narcan with supportive care. 1 dose of Activated charcoal and Narcan was administered. Pt was admitted for Drug Overdose. Psychiatry was consulted and patient was placed on 1:1. Today patient is more more alert. No complaints. She was debating on signing AMA vs being admitted to psychiatry floor. She ultimately chose to [facility] Psych unit. She jonatan any headaches, dizziness, f/c, sob, cp, abd pain, n/v, urinary or bm complaints. Diagnosis: Drug overdose Discharge Exam - Head Exam Head Exam: ATRAUMATIC, NORMOCEPHALIC - Eye Exam Eye Exam: EOMI, Normal appearance, PERRL Pupil Exam: NORMAL ACCOMODATION, PERRL - Respiratory Exam Respiratory Exam: Clear to PA & Lateral, NORMAL BREATHING PATTERN. absent: Rales, Wheezes - Cardiovascular Exam Cardiovascular Exam: REGULAR RHYTHM, RRR, +S1, +S2 - GI/Abdominal Exam GI & Abdominal Exam: Soft. absent: Distended, Tenderness - Neurological Exam Neurological exam: Alert, Normal Gait, Oriented x3 - Psychiatric Exam Psychiatric exam: Normal Affect, Normal Mood Additional comments: Jonatan any suicidal or homicidal ideation. - Skin Skin Exam: Dry, Intact, Normal Color, Warm Discharge Plan - Follow Up Plan Condition: FAIR Disposition: TRANSF TO SNF Instructions: Opioid Overdose (DC) Additional Instructions: Follow instructions as per Psych Nurses and Doctors. Any reoccurrence of symptoms tell your nurse or doctor. Referrals: Kiya Lizarraga, [Primary Care Provider] - Kassi Seaman MD [Staff Provider] - <Cristofer Stark - Last Filed: 03/22/17 15:06> Provider - Provider Date of Admission: 03/21/17 07:53 Attending physician: Cristofer Stark MD Primary care physician: Kiya Vazquez Required Hospital Course - Lab Results Lab Results: Most Recent Lab Values WBC 7.9 10^3/ul (4.5-11.0) 03/21/17 06:35 RBC 4.71 10^6/uL (3.5-6.1) 03/21/17 06:35 Hgb 11.0 gm/dL (12.0-16.0) L 03/21/17 06:35 Hct 35.6 % (36.0-48.0) L 03/21/17 06:35 MCV 75.6 fL (80.0-105.0) L 03/21/17 06:35 MCH 23.4 pg (25.0-35.0) L 03/21/17 06:35 MCHC 30.9 g/dl (31.0-37.0) L 03/21/17 06:35 RDW 14.0 % (11.5-14.5) 03/21/17 06:35 Plt Count 242 10^3/uL (120.0-450.0) 03/21/17 06:35 MPV 9.1 fl (7.0-11.0) 03/21/17 06:35 Gran % 67.8 % (50.0-68.0) 03/21/17 06:35 Lymph % (Auto) 22.3 % (22.0-35.0) 03/21/17 06:35 Whitfield % (Auto) 7.8 % (1.0-6.0) H 03/21/17 06:35 Eos % (Auto) 1.8 % (1.5-5.0) 03/21/17 06:35 Baso % (Auto) 0.3 % (0.0-3.0) 03/21/17 06:35 Gran # 5.33 (1.4-6.5) 03/21/17 06:35 Lymph # 1.8 (1.2-3.4) 03/21/17 06:35 Whitfield # 0.6 (0.1-0.6) 03/21/17 06:35 Eos # 0.1 (0.0-0.7) 03/21/17 06:35 Baso # 0.02 K/mm3 (0.0-2.0) 03/21/17 06:35 Sodium 138 mmol/L (132-148) 03/21/17 06:35 Potassium 4.1 mmol/L (3.6-5.0) 03/21/17 06:35 Chloride 101 mmol/L (98-107) 03/21/17 06:35 Carbon Dioxide 28 mmol/L (21-33) 03/21/17 06:35 Anion Gap 13 (10-20) 03/21/17 06:35 BUN 17 mg/dL (7-21) 03/21/17 06:35 Creatinine 0.8 mg/dL (0.5-1.4) 03/21/17 06:35 Est GFR ( Amer) > 60 03/21/17 06:35 Est GFR (Non-Af Amer) > 60 03/21/17 06:35 Random Glucose 139 mg/dL (70-110) H 03/21/17 06:35 Calcium 8.8 mg/dL (8.4-10.5) 03/21/17 06:35 Phosphorus 3.4 mg/dL (2.5-4.5) 03/21/17 08:50 Magnesium 2.0 mg/dL (1.7-2.2) 03/21/17 08:50 Total Bilirubin 0.4 mg/dL (0.2-1.3) 03/21/17 06:35 AST 34 U/L (15-39) 03/21/17 06:35 ALT 42 U/L (7-56) 03/21/17 06:35 Alkaline Phosphatase 73 U/L (38-133) 03/21/17 06:35 Troponin I < 0.01 ng/mL 03/21/17 08:50 Total Protein 7.6 g/dL (5.8-8.3) 03/21/17 06:35 Albumin 3.8 g/dL (3.0-4.8) 03/21/17 06:35 Globulin 3.8 gm/dL 03/21/17 06:35 Albumin/Globulin Ratio 1.0 (1.1-1.8) L 03/21/17 06:35 TSH 3rd Generation 0.94 mIU/mL (0.46-4.68) 03/21/17 08:50 Urine Color Yellow (YELLOW) 03/21/17 06:35 Urine Appearance Clear (CLEAR) 03/21/17 06:35 Urine pH 7.0 (4.7-8.0) 03/21/17 06:35 Ur Specific Tuckerman 1.010 (1.005-1.035) 03/21/17 06:35 Urine Protein Negative mg/dL (<30 mg/dL) 03/21/17 06:35 Urine Glucose (UA) Negative mg/dL (NEGATIVE) 03/21/17 06:35 Urine Ketones Negative mg/dL (NEGATIVE) 03/21/17 06:35 Urine Blood Small (NEGATIVE) H 03/21/17 06:35 Urine Nitrate Negative (NEGATIVE) 03/21/17 06:35 Urine Bilirubin Negative (NEGATIVE) 03/21/17 06:35 Urine Urobilinogen 0.2 E.U./dL (<1 E.U./dL) 03/21/17 06:35 Ur Leukocyte Esterase Negative Felisha/uL (NEGATIVE) 03/21/17 06:35 Urine RBC 1 - 3 /hpf (0-2) 03/21/17 06:35 Urine WBC 1 - 3 /hpf (0-6) 03/21/17 06:35 Ur Epithelial Cells 3 - 4 /hpf (0-5) 03/21/17 06:35 Urine Bacteria Few (NEG) 03/21/17 06:35 Urine HCG, Qual Negative (NEGATIVE) 03/21/17 06:35 Salicylates < 1 mg/dL (2.0-20.0) L 03/21/17 06:35 Urine Opiates Screen Positive (NEGATIVE) H 03/21/17 06:35 Urine Methadone Screen Positive (NEGATIVE) H 03/21/17 06:35 Acetaminophen < 10.0 ug/ml (10.0-20.0) L 03/21/17 06:35 Ur Barbiturates Screen Negative (NEGATIVE) 03/21/17 06:35 Ur Phencyclidine Scrn Negative (NEGATIVE) 03/21/17 06:35 Ur Amphetamines Screen Negative (NEGATIVE) 03/21/17 06:35 U Benzodiazepines Scrn Negative (NEGATIVE) 03/21/17 06:35 U Oth Cocaine Metabols Negative (NEGATIVE) 03/21/17 06:35 U Cannabinoids Screen Negative (NEGATIVE) 03/21/17 06:35 Alcohol, Quantitative < 10 mg/dL (0-10) 03/21/17 06:35 Attending/Attestation - Attestation I have personally seen and examined this patient.: Yes I have fully participated in the care of the patient.: Yes I have reviewed all pertinent clinical information, including history, physical exam and plan: Yes Notes (Text): I have seen and examined patient at bedside. Agree with the above note with the addition/ exception of the following: This is 31 year old female with history of bipolar disorder, high risk sexual behavior, opioid use, cocaine use, amphetamine use, depression with suicidal ideation who presented with drug overdose today (suicide attempt). Patient took unknown amount of unknown pills. UDS revealed opiates and methadone. EKG revealed ST. Upon admission, she appeared somnolent but arousable. Today, patient denies any complaints. Her HR is within normal limits. She has been walking in the hallway and is very impatient to go o psych unit. She refused blood draw today. Psych consult appreciated. She got accepted in psych unit. Patient is medically stable to go to psych unit today. Upon discharge patient will follow up with Dr Maverick Knapp. Dr Cristofer Stark
[2017-03-22] MEDS ORDERED: POLYETHYLENE GLYCOL 3350 17 GM/Dose PACKET PO SCH (13:00)
--- NOTE | 2017-03-22 15:22 | CON ---
DATE: 03/22/2017 HISTORY OF PRESENT ILLNESS: Shortly, the patient is a 31-year-old female with long and debilitating history of bipolar disorder, possible schizoaffective disorder, history of polysubstance abuse and de pendence. The patient is a heroin addict; the patient is using IV as well as snorting. The patient has multiple hospitalizations into the psychiatric inpatient unit. Most recent was in [facility] 2 weeks ago. The patient was admitted on the medical floor status post overdose on medication; on Neurontin 300 mg 3 times a day, 1 month supply, and also oxycodone unknown amount of pills. Psych co nsult was called for evaluation of mood symptoms and possible suicidal attempt. The patient was seen and examined. 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 The patient has antisocial p ersonality disorder, and impulse control disorder, very hard to manage on the medical side as well as on the psychiatric inpatient unit. Going back to the patient's presentation, the patient is indecisive, wants to leave against medical a dvice, after that she wants to stay in the hospital. The patient reported that she did not try to ki ll herself prior to coming to the hospital. The patient reported that she was stressed out about the fact that she did not see her kids for the past year and patient did not know how they are doing. T he patient reported that in order to prevent depressive feelings she started to take Neurontin with a hope to get high on that medication. The patient did not feel anything after taking 10 or more pill s. The patient decided to take more; the patient said, "I want to be honest with you; I wanted to ge t high." After that, patient took the rest of the Neurontin pills, and the patient said, "I didn't f eel anything." The patient decided to take oxycodone which belongs to patient's mother. The patient adamantly denied thoughts of killing herself, but she wanted to calm herself down. The patient took oxycodone and after a while, the patient, "I didn't feel right. That's why I called ambulance." Thi s pattern chart writer would like to emphasize the fact that patient initiated this admission herself and she denie d that she wanted to kill herself, but she wanted to calm herself. The patient reported that she was feeling more depressed than usual. The patient said that she was feeling more anxious, but reported to have fair appetite and sleep. The patient also reported using heroin about 2-1/2 bundles a day - it is 25 bags a day. The patient says snorting as well as IV use. The patient reported to hear voi shu, but it is much better to compare with the previous times. The patient reported that she is on I nvega Sustenna and it was initiated in [facility], and next dose needs to be in 03/2017, but the patient does not remember when. The patient reported that she fills medications at [facility]. The patient was on Xanax 0.5 mg q.i.d., a 15-day supply was given on 02/07/2017 with no refills. The patient was on Risperdal 2 mg twice a day which was filled 2 days ago as well as Neurontin 300 mg 3 times a day filled 2 days ago. The patient also was on Cogentin 1 mg twice a day filled on 01/25, and patient was on trazodone but filled on 02/05/2017. VITAL SIGNS: Reviewed. MEDICATIONS: Reviewed. LABORATORIES: Reviewed and discussed with the medical team. MENTAL STATUS EXAMINATION: The patient presented well to compare with the previous admissions. The patient gained a lot of weight and appears to be healthy. Intermittent eye contact. Speech was norm al rate, tone, quality, and quantity. Mood described, "I feel depressed." Affect was constricted, m ood congruent. Thought process was coherent and goal directed. Thought content: The patient report ed auditory hallucinations but denied command type hallucinations. Denied paranoid ideations. The p atient denied thoughts of harming herself or others, denied intent or plan. Impulses are not predict able. The patient has tendency of throwing things towards staff when her needs are not addressed. T he patient has impulse control problems as well as antisocial personality, and this type of behavior is not related to psychosis but most likely impulse control as well as antisocial personality disorde r. IMPRESSION: Rule out schizoaffective disorder, rule out substance-induced psychosis, polysubstance a buse and dependence. The patient has multiple medical issues. Please see medical note for more deta iled information. PLAN: The patient would benefit from staying in the psychiatric inpatient unit for further observati on and stabilization. The patient will continue on Risperdal 2 mg twice a day. Xanax will be resume d as needed. Thorazine will be implemented as needed for agitation, 100 mg q. 6 hours p.o. for agita tion and psychosis and IM 50 mg q. 6 hours, plus Benadryl 50 mg p.o. q. 6 hours. PRN medication will be given. The patient is on Invega Sustenna; next dose needs to be sometime in early 03/2017. The patient was attending [facility]; will call for collateral information. Meanwhile, continu e current management. Will get back to you and advise accordingly. If patient will be medically sta ble, will be transferred to the psychiatric inpatient unit. Kassi Seaman MD cc: [id number] TT: 03/22/2017 15:21:55 Confirmation # [id number] Dictation # [id number]
== END 2017-03-22 13:29 | DRG 449 ==
LOC: ED 05:55 → ERH 07:53 → 3RNO 15:40
PROVIDERS: ADMIT Hospitalist; ATTEND Hospitalist
DX: T42.6X2A Poisoning by other antiepileptic and sedative-hypnotic drugs, intentional self-harm, initial encounter (principal); F11.20 Opioid dependence, uncomplicated; F25.9 Schizoaffective disorder, unspecified; B19.20 Unspecified viral hepatitis C without hepatic coma; F14.90 Cocaine use, unspecified, uncomplicated; F15.90 Other stimulant use, unspecified, uncomplicated; R44.0 Auditory hallucinations; F31.9 Bipolar disorder, unspecified; F60.2 Antisocial personality disorder; F63.9 Impulse disorder, unspecified; J45.909 Unspecified asthma, uncomplicated; Z79.899 Other long term (current) drug therapy; A64 Unspecified sexually transmitted disease; R10.13 Epigastric pain; F45.8 Other somatoform disorders; F17.210 Nicotine dependence, cigarettes, uncomplicated; F19.959 Other psychoactive substance use, unspecified with psychoactive substance-induced psychotic disorder, unspecified

== ENCOUNTER 2017-03-22 13:51 | Inpatient (IN) | payer MEDICAID ==
[2017-03-21 05:56] VITALS: BMI 26.6
[2017-03-22] MEDS: Divalproex 500 mg DR(BID formulation) PO SCH (16:21)
[2017-03-23] MEDS: Divalproex 500 mg DR(BID formulation) PO SCH ×2 (09:18→18:02)
[2017-03-23 10:18] VITALS: TEMP 97.8
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
[2017-03-23 13:29] LABS: ADD MANUAL DIFF? NO
[2017-03-23 13:35] LABS: BASO # 0.02 K/mm3 (0.0-2.0); BASO % 0.3 % (0.0-3.0); EOS # 0.2 (0.0-0.7); EOS % 3.1 % (1.5-5.0); GRAN # 4.62 (1.4-6.5); GRAN % 60.4 % (50.0-68.0); HEMATOCRIT 35.4 % (36.0-48.0); LYMPH # 2.2 (1.2-3.4); LYMPH % 28.4 % (22.0-35.0); MEAN CELL VOLUME 75.6 fL (80.0-105.0); MEAN CORPUSCULAR HEMOGLOBIN 23.3 pg (25.0-35.0); MEAN CORPUSCULAR HGB CONC 30.8 g/dl (31.0-37.0); MEAN PLATELET VOLUME 8.5 fl (7.0-11.0); MONO # 0.6 (0.1-0.6); MONO % 7.8 % (1.0-6.0); PLATELET COUNT 220 10^3/uL (120.0-450.0); RED CELL DISTRIBUTION WIDTH 13.9 % (11.5-14.5); WHITE BLOOD COUNT 7.7 10^3/ul (4.5-11.0)
[2017-03-23 13:48] LABS: ALKALINE PHOSPHATASE 76 U/L (38-133); ALT/SGPT 54 U/L (7-56); AST/SGOT 39 U/L (15-39); BILIRUBIN,TOTAL 0.4 mg/dL (0.2-1.3); BLOOD UREA NITROGEN 17 mg/dL (7-21); CALCIUM 8.8 mg/dL (8.4-10.5); CARBON DIOXIDE 26 mmol/L (21-33); CHLORIDE 104 mmol/L (98-107); GFR AFRICAN-AMERICAN > 60; GLUCOSE,RANDOM 113 mg/dL (70-110); SODIUM 138 mmol/L (132-148)
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
[2017-03-23 14:04] LABS: FREE T4 0.84 ng/dL (0.78-2.19)
[2017-03-23 14:18] LABS: THYROID STIMULATING HORMONE 1.44 mIU/mL (0.46-4.68)
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
[2017-03-23 19:25] VITALS: BP 130/87; PULSE 116; RESP 18
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
== END 2017-03-23 22:09 | DRG 430 ==
LOC: PSYC 13:51
PROVIDERS: ADMIT Psychiatry & Neurology Psychiatry; ATTEND Psychiatry & Neurology Psychiatry
DX: F31.9 Bipolar disorder, unspecified (principal); F25.9 Schizoaffective disorder, unspecified; Z78.1 Physical restraint status; F63.9 Impulse disorder, unspecified; F60.2 Antisocial personality disorder; B19.20 Unspecified viral hepatitis C without hepatic coma; F14.90 Cocaine use, unspecified, uncomplicated; F11.90 Opioid use, unspecified, uncomplicated; F41.9 Anxiety disorder, unspecified; A64 Unspecified sexually transmitted disease; Y04.0XXA Assault by unarmed brawl or fight, initial encounter; Z91.5 Personal history of self-harm; Z91.14 Patient's other noncompliance with medication regimen; Y92.239 Unspecified place in hospital as the place of occurrence of the external cause

== ENCOUNTER 2017-04-28 07:34 | Emergency (ER) | payer MEDICAID ==
[2017-04-28 07:35] VITALS: BMI 26.6
[2017-04-28 07:37] VITALS: BP 126/87; PULSE 90; RESP 18; TEMP 97.1; O2SAT 98
[2017-04-28] MEDS ORDERED: Amoxicillin-Clav 875-125 mg Tab PO STA (07:56)
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
== END 2017-04-28 08:12 | disposition home or self-care (01) ==
LOC: ED 07:34
DX: J32.9 Chronic sinusitis, unspecified (principal)

== ENCOUNTER 2017-05-06 16:31 | Emergency (ER) | payer MEDICAID ==
[2017-05-06 16:32] VITALS: BMI 26.6
--- NOTE | 2017-05-06 16:59 | ED PDOC ---
Arrival/HPI - General Chief Complaint: Psychiatric Evaluation Time Seen by Provider: 05/06/17 16:38 Historian: Patient - History of Present Illness Time/Duration: Prior to Arrival Symptom Course: Worsening Severity Level: Severe Associated Symptoms (Text): 05/06/17 16:56 Patient reports to the emergency department complaining that she is hearing voices that are telling her to hurt herself. She states that she cut her left wrist several days ago and she feels like cutting herself again. She denies homicidal ideation. Patient states that she was recently discharged from the psychiatric hospital several days ago. When reviewing her records there is an admission to the psychiatric floor dated 05/04/2017 with a discharge dated today. Patient vehemently denies being discharged today. She reports that she is a cocaine and heroin abuser, last used approximately 2 weeks ago. Past Medical History - Infectious Disease Hx of Infectious Diseases: None - Tetanus Immunization Tetanus Immunization: Unknown - Past Medical History Past Medical History: No Previous - Cardiac Hx Cardiac Disorders: No Hx Hypertension: No - Pulmonary Hx Asthma: Yes Other/Comment: smokes a pack of cigarettes daily - Neurological Hx Neurological Disorder: No Hx Seizures: No - HEENT Hx HEENT Disorder: No - Renal Hx Renal Disorder: No - Endocrine/Metabolic Hx Endocrine Disorders: No Other/Comment: Prev h/o elevated prolactin - Hematological/Oncological Hx Hepatitis C: Yes - Integumentary Hx Dermatological Disorder: No - Musculoskeletal/Rheumatological Hx Musculoskeletal Disorders: No Hx Falls: No - Gastrointestinal Hx Gastrointestinal Disorders: No - Genitourinary/Gynecological Hx Urinary Tract Infection: Yes - Psychiatric Hx Bipolar Disorder: Yes Hx Depression: Yes Hx Sexual Abuse: No Hx Substance Use: Yes (RECENT PERCOCET USE) - Anesthesia Hx Anesthesia: No - Suicidal Assessment Feels Threatened In Home Enviroment: No Family/Social History - Physician Review Nursing Documentation Reviewed: Yes Family/Social History: Unknown Family HX Smoking Status: Light Smoker < 10 Cigarettes Daily Hx Alcohol Use: No Hx Substance Use: Yes (RECENT PERCOCET USE) Substance used: Percocet from the streets, heroin, cocaine Hx Substance Use Treatment: Yes Allergies/Home Meds Allergies/Adverse Reactions: Allergies No Known Allergies Allergy (Verified 05/04/17 14:45) Home Medications: Home Meds Medication Instructions Recorded Confirmed No Known Home Med 05/04/17 05/06/17 Review of Systems - Physician Review All systems were reviewed & negative as marked: Yes - Review of Systems Constitutional: absent: Fatigue, Fevers Respiratory: Normal Cardiovascular: Normal Gastrointestinal: Normal Genitourinary Female: Normal Neurological: Normal Physical Exam Vital Signs Temp Pulse Resp BP Pulse Ox 05/06/17 16:33 98.7 F 112 H 17 108/69 97 Temperature: Afebrile Blood Pressure: Normal Pulse: Tachycardic Respiratory Rate: Normal Appearance: Positive for: Well-Appearing, Non-Toxic, Comfortable Pain Distress: None Mental Status: Positive for: Alert and Oriented X 3 - Systems Exam Head: Present: Atraumatic, Normocephalic Pupils: Present: PERRL Extroacular Muscles: Present: EOMI Conjunctiva: Present: Normal Mouth: Present: Moist Mucous Membranes Pharnyx: No: ERYTHEMA, EXUDATE, TONSILS ENLARGED Neck: Present: Normal Range of Motion Respiratory/Chest: Present: Clear to Auscultation, Good Air Exchange, Decreased Breath Sounds. No: Respiratory Distress, Accessory Muscle Use Cardiovascular: Present: Regular Rate and Rhythm, Normal S1, S2. No: Murmurs Abdomen: Present: Normal Bowel Sounds. No: Tenderness, Distention, Peritoneal Signs, Rebound, Guarding Upper Extremity: Present: Normal ROM, NORMAL PULSES, Neurovascularly Intact, Other (Multiple superficial abrasions over her left volar forearm in various stages of healing and none requiring sutures). No: Edema, Tenderness, Swelling , Erythema, Deformity Lower Extremity: Present: Normal Inspection. No: Edema Neurological: Present: GCS=15, CN II-XII Intact, Speech Normal, Motor Func Grossly Intact, Normal Cerebellar Funct, Gait Normal Psychiatric: Present: Alert, Oriented x 3, Normal Insight, Normal Concentration , Depressed Mood, Suicidal Ideation, Hallucinations. No: Normal Affect, Normal Mood, Agitated, Homicidal Ideation, Delusional, Intoxicated, Lethargic Medical Decision Making ED Course and Treatment: 05/06/17 16:59 EKG shows normal sinus rhythm rate approximately [address] or T-wave changes 05/06/17 18:57 Care of this patient will be endorsed to the night of emergency department physician, , pending crisis evaluation and final disposition. - Lab Interpretations Lab Results: Lab Results 05/06/17 17:00: Urine Color Yellow, Urine Appearance Clear, Urine pH 6.0, Ur Specific Star >= 1.030, Urine Protein Trace H, Urine Glucose (UA) Negative, Urine Ketones Negative, Urine Blood Negative, Urine Nitrate Negative, Urine Bilirubin Negative, Urine Urobilinogen 0.2, Ur Leukocyte Esterase Negative, Urine RBC 0 - 2, Urine WBC 1 - 3, Ur Epithelial Cells 3 - 4, Amorphous Sediment Few, Urine Bacteria Mod, Urine HCG, Qual Negative 05/06/17 16:55: POC Glucose (mg/dL) 77 Disposition/Present on Arrival - Present on Arrival Any Indicators Present on Arrival: No History of DVT/PE: No History of Uncontrolled Diabetes: No Urinary Catheter: No History of Decub. Ulcer: No History Surgical Site Infection Following: None - Disposition Have Diagnosis and Disposition been Completed?: Yes Diagnosis: Depression, Schizoaffective disorder, Substance abuse, Bipolar depression, Suicidal ideation Disposition Time: 20:00 Patient Problems: Current Active Problems Problem Status Onset Bipolar depression Acute Depression Acute Schizoaffective disorder Acute Substance abuse Acute Suicidal ideation Acute Condition: GOOD Referrals: Antwon Cesar Jr., MD [Primary Care Provider] - Follow up with primary
[2017-05-06 17:24] LABS: URINE BILIRUBIN NEGATIVE (NEGATIVE); URINE BLOOD NEGATIVE (NEGATIVE); URINE GLUCOSE (UA) NEGATIVE (NEGATIVE); URINE KETONE NEGATIVE (NEGATIVE); URINE LEUKOCYTE ESTERASE NEGATIVE Leu/uL (NEGATIVE); URINE PROTEIN TRACE mg/dL (<30 mg/dL); URINE UROBILINOGEN 0.2 E.U./dL (<1 E.U./dL)
[2017-05-06 17:25] LABS: URINE APPEARANCE CLEAR (CLEAR); URINE COLOR YELLOW (YELLOW)
[2017-05-06 17:33] LABS: URINE RBC 0 - 2 /hpf (0-2)
[2017-05-06 17:34] LABS: ADD MANUAL DIFF? NO
[2017-05-06 17:34] LABS: URINE AMORPHOUS SEDIMENT FEW; URINE BACTERIA MOD (NEG)
[2017-05-06 17:37] LABS: BASO # 0.02 K/mm3 (0.0-2.0); BASO % 0.2 % (0.0-3.0); EOS % 0.2 % (1.5-5.0); GRAN # 8.31 (1.4-6.5); GRAN % 76.7 % (50.0-68.0); HEMATOCRIT 35.9 % (36.0-48.0); LYMPH % 18.5 % (22.0-35.0); MEAN CELL VOLUME 75.3 fL (80.0-105.0); MEAN CORPUSCULAR HEMOGLOBIN 23.1 pg (25.0-35.0); MEAN CORPUSCULAR HGB CONC 30.6 g/dl (31.0-37.0); MONO # 0.5 (0.1-0.6); MONO % 4.4 % (1.0-6.0); PLATELET COUNT 329 10^3/uL (120.0-450.0); WHITE BLOOD COUNT 10.8 10^3/ul (4.5-11.0)
[2017-05-06 17:49] LABS: ALB/GLOB RATIO 1.2 (1.1-1.8); ALKALINE PHOSPHATASE 66 U/L (38-133); ALT/SGPT 30 U/L (7-56); AST/SGOT 32 U/L (15-39); BILIRUBIN,TOTAL 0.7 mg/dL (0.2-1.3); BLOOD UREA NITROGEN 15 mg/dL (7-21); CALCIUM 9.5 mg/dL (8.4-10.5); CARBON DIOXIDE 23 mmol/L (21-33); CHLORIDE 107 mmol/L (95-110); GFR AFRICAN-AMERICAN > 60; GLUCOSE,RANDOM 81 mg/dL (70-110); SODIUM 139 mmol/L (132-148); TOTAL PROTEIN 7.6 g/dL (5.8-8.3)
[2017-05-06 19:30] VITALS: BP 109/64
[2017-05-06 20:40] VITALS: PULSE 80; RESP 16; TEMP 98; O2SAT 100
--- NOTE | 2017-05-07 10:50 | CARD ---
APPROVED REPORT EKG Measurement Heart [id number] <Conclusion> Sinus tachycardia
== END 2017-05-06 20:40 | disposition home or self-care (01) ==
LOC: ED 16:31
DX: F32.9 Major depressive disorder, single episode, unspecified (principal); F25.9 Schizoaffective disorder, unspecified; F19.10 Other psychoactive substance abuse, uncomplicated; F31.9 Bipolar disorder, unspecified; R45.851 Suicidal ideations

== ENCOUNTER 2017-07-21 13:03 | Emergency (ER) | payer MEDICAID ==
[2017-07-21 13:05] VITALS: BMI 26.6
[2017-07-21] MEDS ORDERED: cefTRIAXone (Rocephin) 250 mg Inj IM STA (13:37)
--- NOTE | 2017-07-21 13:41 | ED PDOC ---
Arrival/HPI - General Chief Complaint: Female Genitourinary Time Seen by Provider: 07/21/17 13:35 Historian: Patient - History of Present Illness Narrative History of Present Illness (Text): 07/21/17 13:38 31 yo F presents complaining of thick green vaginal d/c x 3 days, with dysuria and fever 3 days ago. Also adds that she feels that she has a cold sore on her upper lip. Reports having unprotected sex with a new partner 2 weeks ago. Denies any nausea / vomiting, abdominal pain, back pain, rash. Has no other complaints. LMP 2 weeks ago Past Medical History - Provider Review Nursing Documentation Reviewed: Yes - Infectious Disease Hx of Infectious Diseases: None - Tetanus Immunization Tetanus Immunization: Unknown - Past Medical History Past Medical History: No Previous - Cardiac Hx Cardiac Disorders: No Hx Hypertension: No - Pulmonary Hx Asthma: Yes Other/Comment: smokes a pack of cigarettes daily - Neurological Hx Seizures: No - HEENT Hx HEENT Disorder: No - Renal Hx Renal Disorder: No - Endocrine/Metabolic Hx Endocrine Disorders: No Other/Comment: Prev h/o elevated prolactin - Hematological/Oncological Hx Hepatitis C: Yes - Integumentary Hx Dermatological Disorder: No - Musculoskeletal/Rheumatological Hx Musculoskeletal Disorders: No Hx Falls: No - Gastrointestinal Hx Gastrointestinal Disorders: No - Genitourinary/Gynecological Hx Urinary Tract Infection: Yes - Psychiatric Hx Bipolar Disorder: Yes Hx Depression: Yes Hx Sexual Abuse: No Hx Substance Use: Yes (RECENT PERCOCET USE) - Anesthesia Hx Anesthesia: No - Suicidal Assessment Feels Threatened In Home Enviroment: No Family/Social History - Physician Review Nursing Documentation Reviewed: Yes Family/Social History: No Known Family HX Smoking Status: Light Smoker < 10 Cigarettes Daily Hx Alcohol Use: No Hx Substance Use: Yes (RECENT PERCOCET USE) Substance used: Percocet from the streets, heroin, cocaine Hx Substance Use Treatment: Yes Allergies/Home Meds Allergies/Adverse Reactions: Allergies No Known Allergies Allergy (Verified 07/21/17 13:14) Review of Systems - Review of Systems Constitutional: Normal, Fevers. absent: Fatigue, Weight Change ENT: Normal. absent: Sore Throat, Rhinorrhea, Sinus Congestion Respiratory: Normal. absent: SOB, Cough, Sputum Cardiovascular: Normal. absent: Chest Pain, Palpitations, Edema Gastrointestinal: Normal. absent: Abdominal Pain, Vomiting, Appetite Changes Genitourinary Female: Normal, Dysuria, Vaginal Discharge. absent: Frequency, Hematuria, Vaginal Bleeding Skin: Normal. absent: Rash, Pruritis, Skin Lesions Physical Exam - Physical Exam Narrative Physical Exam (Text): 07/21/17 13:40 GENERAL APPEARANCE: Patient is awake, alert, oriented x 3, in no acute distress. SKIN: Warm, dry; (-) cyanosis. EYES: (-) conjunctival pallor, (-) scleral icterus. ENMT: Mucous membranes moist. (+) 1 cold sore noted to the upper lip, (-) other lesions to the lip or the mucosa. NECK: (-) tenderness, (-) stiffness, (-) lymphadenopathy. CHEST AND RESPIRATORY: (-) rales, (-) rhonchi, (-) wheezes; breath sounds equal bilaterally. HEART AND CARDIOVASCULAR: (-) irregularity; (-) murmur, (-) gallop. ABDOMEN AND GI: (-) distention. Bowel sounds active; (-) tenderness, (-) guarding, (-) rebound, (-) palpable masses, (-) CVA tenderness. PELVIC: normal external genitalia, (-) vaginal discharge, (+) CMT tenderness, (- ) pelvic or adnexal tenderness or mass. A female tech, was present during the entire exam. EXTREMITIES: (-) deformity, (-) edema, (+) distal pulses. NEURO AND PSYCH: Mental status as above; (-) focal findings. Vital Signs Temp Pulse Resp BP Pulse Ox 07/21/17 14:25 98.5 F 75 19 111/72 98 07/21/17 13:09 98.2 F 92 H 18 110/74 98 Medical Decision Making ED Course and Treatment: 07/21/17 13:42 31 yo F presents complaining of thick green vaginal d/c x 3 days, with dysuria and fever 3 days ago. Also adds that she feels that she has a cold sore on her upper lip. Plan: - Uhcg - Urinalysis - Urine cx - Rocephin 250 mg IM Uhcg (-). Urinalysis (-). Lab results discussed with the patient in great detail. Chlamydia and gonorrhea urine test still pending. Diagnosis of PID discussed with the patient. Instructed on safe sex practices. Based on history, exam and diagnostic results plan will be for outpatient f/u. Otherwise advised to follow up with primary care physician in 1-2 days without fail. Advised to take medication as prescribed. Return to the emergency room at any time for any new or worsening symptoms. Patient states she fully agrees with and understands discharge instructions. States that she agrees with the plan and disposition. Verbalized and repeated discharge instructions and plan. I have given the patient opportunity to ask any additional questions. - Lab Interpretations Lab Results: Lab Results 07/21/17 13:55: Urine Color Yellow, Urine Appearance Clear, Urine pH 5.5, Ur Specific [place] >= 1.030, Urine Protein Trace H, Urine Glucose (UA) Negative, Urine Ketones Negative, Urine Blood Trace-lysed H, Urine Nitrate Negative, Urine Bilirubin Negative, Urine Urobilinogen 0.2, Ur Leukocyte Esterase Negative , Urine RBC 0 - 2, Urine WBC 0 - 2, Ur Epithelial Cells 6 - 8, Urine Bacteria Small - Medication Orders Current Medication Orders: Discontinued Medications Ceftriaxone Sodium (Rocephin) 250 mg IM STAT STA PRN Reason: Protocol Stop: 07/21/17 13:38 Last Admin: 07/21/17 14:03 Dose: 250 mg - PA / SOUND MIXER / Resident Statement MD/DO has reviewed & agrees with the documentation as recorded. Disposition/Present on Arrival - Present on Arrival Any Indicators Present on Arrival: No History of DVT/PE: No History of Uncontrolled Diabetes: No Urinary Catheter: No History of Decub. Ulcer: No History Surgical Site Infection Following: None - Disposition Have Diagnosis and Disposition been Completed?: Yes Diagnosis: Pelvic inflammatory disease Disposition: HOME/ ROUTINE Disposition Time: 14:40 Patient Plan: Discharge Patient Problems: Current Active Problems Problem Status Onset Pelvic inflammatory disease Acute Condition: STABLE Discharge Instructions (ExitCare): Pelvic Inflammatory Disease (ED) Print Language: ARMENIAN Additional Instructions: Thank you for letting us take care of you today. You were treated for pelvic inflammatory disease. The emergency medical care you received today was directed at your acute symptoms. If you were prescribed any medication, please fill it and take as directed. It may take several days for your symptoms to resolve. Return to the Emergency Department if your symptoms worsen, do not improve, or if you have any other problems. Please contact your doctor in 2 days for re-evaluation and follow up / or call one of the physicians/clinics you have been referred to that are listed on the Patient Visit Information form that is included in your discharge packet. Bring any paperwork you were given at discharge with you along with any medications you are taking to your follow up visit. Our treatment cannot replace ongoing medical care by a primary care provider (PCP) outside of the emergency department. Thank you for allowing the [facility] team to be part of your care today. If you had an STI test: It will take 48 hours for the results. Please call after 1 week if you have not heard back. Prescriptions: Doxycycline Hyclate 100 mg PO BID #28 capsule Referrals: PCP,NO [Primary Care Provider] - Follow up with primary Forms: [employer] (Arabic)
[2017-07-21 14:07] LABS: PH,URINE 5.5 (4.7-8.0); URINE BILIRUBIN NEGATIVE (NEGATIVE); URINE BLOOD TRACE-LYSED (NEGATIVE); URINE GLUCOSE (UA) NEGATIVE (NEGATIVE); URINE KETONE NEGATIVE (NEGATIVE); URINE LEUKOCYTE ESTERASE NEGATIVE Leu/uL (NEGATIVE); URINE PROTEIN TRACE mg/dL (<30 mg/dL); URINE UROBILINOGEN 0.2 E.U./dL (<1 E.U./dL)
[2017-07-21 14:08] LABS: URINE APPEARANCE CLEAR (CLEAR); URINE COLOR YELLOW (YELLOW)
[2017-07-21 14:26] VITALS: PULSE 75
[2017-07-21 14:52] LABS: URINE BACTERIA SMALL (NEG); URINE RBC 0 - 2 /hpf (0-2); URINE WBC 0 - 2 /hpf (0-6)
[2017-07-21 15:10] VITALS: BP 116/73; RESP 20; TEMP 98; O2SAT 97
== END 2017-07-21 15:11 | disposition home or self-care (01) ==
LOC: ED 13:03
DX: N73.9 Female pelvic inflammatory disease, unspecified (principal)
CPT/HCPCS: 81001; 87086; 87491; 87591; 96372; 99283; J0696

== ENCOUNTER 2017-12-24 12:58 | Inpatient (IN) | payer MEDICAID ==
[2017-12-24 13:20] VITALS: BMI 25.0
[2017-12-24 13:39] VITALS: TEMP 98.1
[2017-12-24 13:43] LABS: BASO # 0.01 K/mm3 (0.0-2.0); BASO % 0.1 % (0.0-3.0); EOS # 0.1 (0.0-0.7); EOS % 0.9 % (1.5-5.0); GRAN # 8.7 (1.4-6.5); GRAN % 76.7 % (50.0-68.0); HEMOGLOBIN 11.9 g/dL (12.0-16.0); LYMPH # 1.8 (1.2-3.4); LYMPH % 16.2 % (22.0-35.0); MEAN CELL VOLUME 76.6 fl (80.0-105.0); MEAN PLATELET VOLUME 9.2 fl (7.0-11.0); MONO # 0.7 (0.1-0.6); MONO % 6.1 % (1.0-6.0); RBC 5.18 10^6/uL (3.5-6.1); RED CELL DISTRIBUTION WIDTH 13.9 % (11.5-14.5); WHITE BLOOD COUNT 11.3 10^3/ul (4.5-11.0)
[2017-12-24 14:02] LABS: ALB/GLOB RATIO 1.1 (1.1-1.8); ALBUMIN 3.8 g/dL (3.0-4.8); ALT/SGPT 27 U/L (7-56); AST/SGOT 24 U/L (14-36); BLOOD UREA NITROGEN 19 mg/dL (7-21); CALCIUM 9.3 mg/dL (8.4-10.5); GFR AFRICAN-AMERICAN > 60; GFR NON-AFRICAN AMERICAN > 60
[2017-12-24 14:03] LABS: ACETAMINOPHEN < 10.0 ug/ml (10.0-20.0); SALICYLATE < 1 mg/dL (2.0-20.0)
[2017-12-24 14:39] LABS: URINE BILIRUBIN NEGATIVE (NEGATIVE); URINE BLOOD NEGATIVE (NEGATIVE); URINE COLOR YELLOW (YELLOW); URINE GLUCOSE (UA) NEGATIVE (NEGATIVE); URINE LEUKOCYTE ESTERASE NEGATIVE Leu/uL (NEGATIVE); URINE NITRATE NEGATIVE (NEGATIVE); URINE PROTEIN NEGATIVE mg/dL (<30 mg/dL); URINE UROBILINOGEN 0.2 E.U./dL (<1 E.U./dL)
[2017-12-24 14:40] LABS: URINE APPEARANCE CLEAR (CLEAR)
[2017-12-24 15:20] LABS: BARBITURATES, UR NEGATIVE (NEGATIVE); BENZODIAZEPINES, UR NEGATIVE (NEGATIVE); OPIATES, UR POSITIVE (NEGATIVE); PHENCYCLIDINE, UR NEGATIVE (NEGATIVE)
--- NOTE | 2017-12-24 17:18 | ED PDOC ---
Arrival/HPI - General Chief Complaint: Psychiatric Evaluation Time Seen by Provider: 12/24/17 13:28 Historian: Patient - History of Present Illness Narrative History of Present Illness (Text): 12/24/17 17:14 32-year-old female presents today with depression and suicidal ideation. Patient states that she's had thoughts of hurting herself today and does not want to live. Patient states she is hearing voices. Patient admits to using heroin yesterday. Denies chest pain or shortness of breath. Denies cough. No urinary symptoms. Patient states she was recently diagnosed with HIV but has not started any HIV medications. No vomiting or diarrhea. Denies URI symptoms. No other complaints Past Medical History - Provider Review Nursing Documentation Reviewed: Yes - Travel History Have you recently traveled outside [place] w/in the past 3 mons?: No - Infectious Disease Hx of Infectious Diseases: None - Tetanus Immunization Tetanus Immunization: Unknown - Past Medical History Past Medical History: No Previous - Cardiac Hx Cardiac Disorders: No Hx Hypertension: No - Pulmonary Hx Tuberculosis: No - Neurological HX Cerebrovascular Accident: No Hx Seizures: No - HEENT Hx HEENT Disorder: No - Renal Hx Renal Disorder: No - Endocrine/Metabolic Hx Endocrine Disorders: No Other/Comment: Prev h/o elevated prolactin - Hematological/Oncological Hx Cancer: No - Integumentary Hx Dermatological Disorder: No - Musculoskeletal/Rheumatological Hx Musculoskeletal Disorders: No Hx Falls: No - Gastrointestinal Hx Gastrointestinal Disorders: No - Genitourinary/Gynecological Hx Sexually Transmitted Diseases: No - Psychiatric Hx Substance Use: Yes (denies) - Anesthesia Hx Anesthesia: No - Suicidal Assessment Suicide Risk Precautions: Suicide Precautions Family/Social History - Physician Review Nursing Documentation Reviewed: Yes Family/Social History: Unknown Family HX Smoking Status: Light Smoker < 10 Cigarettes Daily Hx Alcohol Use: No Hx Substance Use: Yes (denies) Substance used: Percocet from the streets, heroin, cocaine Hx Substance Use Treatment: Yes Allergies/Home Meds Allergies/Adverse Reactions: Allergies No Known Allergies Allergy (Verified 12/24/17 13:21) Home Medications: Home Meds Medication Instructions Recorded Confirmed Unobtainable 12/24/17 12/24/17 Review of Systems - Review of Systems Constitutional: absent: Fatigue, Fevers ENT: Sore Throat Respiratory: absent: SOB, Cough Cardiovascular: absent: Chest Pain, Palpitations Gastrointestinal: absent: Abdominal Pain, Nausea, Vomiting Genitourinary Female: absent: Dysuria, Frequency Musculoskeletal: absent: Arthralgias, Back Pain, Neck Pain Skin: absent: Rash, Pruritis Neurological: absent: Headache, Dizziness Psychiatric: absent: Anxiety, Depression Physical Exam Vital Signs Reviewed: Yes Vital Signs Temp Pulse Resp BP Pulse Ox 12/24/17 15:34 69 18 118/69 100 12/24/17 13:39 98.1 F 72 18 120/72 100 Temperature: Afebrile Blood Pressure: Normal Pulse: Regular Respiratory Rate: Normal Appearance: Positive for: Well-Appearing, Non-Toxic, Comfortable Pain Distress: None Mental Status: Positive for: Alert and Oriented X 3 - Systems Exam Head: Present: Atraumatic Mouth: Present: Moist Mucous Membranes Pharnyx: Present: Normal. No: ERYTHEMA, EXUDATE Neck: Present: Normal Range of Motion Respiratory/Chest: Present: Clear to Auscultation, Good Air Exchange. No: Respiratory Distress, Accessory Muscle Use Cardiovascular: Present: Regular Rate and Rhythm, Normal S1, S2. No: Murmurs Abdomen: No: Tenderness, Distention, Rebound, Guarding Upper Extremity: Present: Normal ROM, Other (tract amaya; no erythema or abscess , ) Lower Extremity: Present: Normal ROM Neurological: Present: GCS=15, Speech Normal Skin: Present: Warm, Dry Psychiatric: Present: Alert, Oriented x 3 Medical Decision Making ED Course and Treatment: 12/24/17 17:21 Patient is nontoxic well-appearing in no distress vital signs are stable. CBC Wbc; 11.3 CMP glucose; 137 Tylenol WNL Salicylate WNL Alcohol level WNL Urine drug screen + opiates, methadone, cocaine UA; wnl cxr: wnl ekg normal sinus rhythm at 72 bpm normal axis normal intervals and no ST elevations pt is medically cleared for PES evaluation Patient was seen and evaluated by PES screener: brooks. pt was seen and evaluated by dr. thomas Seaman, psychiatrist in the emergency room. Patient has sign voluntarily to the psychiatric floor. all aspects of this case were discussed the attending of record. Impression; depression, SI Admit to behavioral health floor - Lab Interpretations Lab Results: 12/24/17 13:30 12/24/17 13:30 Lab Results 12/24/17 14:30: Urine Opiates Screen Positive H, Urine Methadone Screen Positive H, Ur Barbiturates Screen Negative, Ur Phencyclidine Scrn Negative, Ur Amphetamines Screen No result, U Benzodiazepines Scrn Negative, U Oth Cocaine Metabols Positive H, U Cannabinoids Screen Negative 12/24/17 14:12: Urine Color Yellow, Urine Appearance Clear, Urine pH 6.0, Ur Specific [place] >= 1.030, Urine Protein Negative, Urine Glucose (UA) Negative, Urine Ketones Negative, Urine Blood Negative, Urine Nitrate Negative, Urine Bilirubin Negative, Urine Urobilinogen 0.2, Ur Leukocyte Esterase Negative 12/24/17 13:30: Alcohol, Quantitative < 10 12/24/17 13:30: Salicylates < 1 L, Acetaminophen < 10.0 L 12/24/17 13:30: Sodium 142, Potassium 3.7, Chloride 105, Carbon Dioxide 27, Anion Gap 14, BUN 19, Creatinine 0.8, Est GFR ( Amer) > 60, Est GFR (Non- Af Amer) > 60, Random Glucose 137 H, Calcium 9.3, Total Bilirubin 0.3, AST 24, ALT 27, Alkaline Phosphatase 65, Total Protein 7.4, Albumin 3.8, Globulin 3.6, Albumin/Globulin Ratio 1.1 12/24/17 13:30: WBC 11.3 H, RBC 5.18, Hgb 11.9 L, Hct 39.7, MCV 76.6 L, MCH 23.0 L, MCHC 30.0 L, RDW 13.9, Plt Count 258, MPV 9.2, Gran % 76.7 H, Lymph % ( Auto) 16.2 L, [place] % (Auto) 6.1 H, Eos % (Auto) 0.9 L, Baso % (Auto) 0.1, Gran # 8.70 H, Lymph # 1.8, [place] # 0.7 H, Eos # 0.1, Baso # 0.01 - RAD Interpretation Radiology Orders: 12/24/17 16:13 CHEST PORTABLE [RAD] Stat Disposition/Present on Arrival - Present on Arrival Any Indicators Present on Arrival: No History of DVT/PE: No History of Uncontrolled Diabetes: No Urinary Catheter: No History of Decub. Ulcer: No History Surgical Site Infection Following: None - Disposition Have Diagnosis and Disposition been Completed?: Yes Diagnosis: Drug abuse, Suicidal ideation, Depression Disposition: HOSPITALIZED Disposition Time: 16:24 Patient Plan: Admission Patient Problems: Current Active Problems Problem Status Onset Drug dependence Chronic Condition: FAIR Referrals: Forest Zhu MD [Primary Care Provider] - Follow up with primary
--- NOTE | 2017-12-24 18:07 | CARD ---
APPROVED REPORT EKG Measurement Heart [id number] <Conclusion> Normal sinus rhythm Normal ECG
[2017-12-24 18:49] VITALS: RESP 18; O2SAT 98
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
[2017-12-24] MEDS ORDERED: Alum-Mag Hydrox-Simethicone Susp (30 mL) PO PRN (20:08)
[2017-12-24] MEDS ORDERED: Magnesium Hydroxide Susp 30 ml UD PO PRN (20:08)
[2017-12-24] MEDS ORDERED: DiphenhydrAMINE 50 mg/ml Inj IM PRN (20:25)
--- NOTE | 2017-12-25 01:05 | PCM.BM ---
<Maya Zuñiga - Last Filed: 12/25/17 01:03> Treatment Plan Problems - Problems identified on initial assessmt suicidal ideation Date Initiated: 12/24/17 Time Initiated: :30 Assessment reference: NA Status: Active Priority: 1 auditory hallucinations Date Initiated: 12/24/17 Time Initiated: 19:30 Assessment reference: NA Status: Active Priority: 2 medication nonadherence Date Initiated: 12/24/17 Time Initiated: 19:30 Assessment reference: NA Status: Active Priority: 3 Treatment assets and liabiliti Patient Assests: self-reliant, ADL independent, negotiates basic needs Patient Liabilities: live alone, financial problems, poor support system, substance abuse - Milieu Protocol Maintain good personal hygiene: daily Encourage regular showers, daily Remind patient to perform daily oral care, daily Assist patient to perform ADL's Conduct patient checks and document Observation sheet: Q15 minutes Maintain personal safety: every shift Educate patient to report safety concerns to staff, every shift Monitor environment for contraband/sharps Medication safety: Monitor for expected outcome, potential side effects: every shift, Assess barriers to learning: every shift, Assess readiness for medication education: every shift Discharge/Continuing Care - Education Needs Education Needs: Patient Medication, Patient Diagnosis/Disease Process, Patient Coping Skills, Patient Anger Management skills, Patient Placement options, Patient Community resources, Patient Activities of Daily Living, Patient Health Practices/Safety, Patient Personal Hygiene/Grooming - Discharge Discharge Criteria: Tolerates medication w/o severe side effects, Free of Suicidal thoughts, Free of Homicidal thoughts, Free of agitation, Normal sleep pattern <Kassi Seaman - Last Filed: 12/25/17 14:41> - Diagnosis (1) Bipolar 1 disorder, depressed, moderate Status: Acute Interventions: 12/25/17 14:40 Psychoeducation Psychopharmacology/adjustment of medications as needed/ monitoring possible side effects Monitor blood level of mood stabilizers Evaluate pt on daily basis Compliance with medications and follow up appointments Suicide and homicide risk assessment and prevention, coping strategies, safety plan Relapse prevention Reduction of symptoms Improve functional status Family involvement As outpatient: cognitive behavioral therapy (2) Polysubstance dependence including opioid type drug without complication, episodic abuse Status: Acute Interventions: 12/25/17 14:40 Monitoring withdrawal symptoms Medical detoxification Pharmacotherapy for alcohol/benzos/opioid dependence Maintaining sobriety Relapse prevention Possible rehabilitation Motivational interviewing 12-step programs: AA meetings
--- NOTE | 2017-12-25 08:08 | RAD ---
HISTORY: pes eval COMPARISON: 12/04/2016 FINDINGS: LUNGS: No active pulmonary disease. PLEURA: No significant pleural effusion identified, no pneumothorax apparent. CARDIOVASCULAR: Normal. OSSEOUS STRUCTURES: No significant abnormalities. VISUALIZED UPPER ABDOMEN: Normal. OTHER FINDINGS: None. IMPRESSION: No active disease.
[2017-12-25] MEDS: Divalproex 250 mg DR (BID formulation) PO SCH ×3 (11:14→17:43)
--- NOTE | 2017-12-25 13:18 | CP.PCM.CON ---
<NithinChrisMarjorie - Last Filed: 12/25/17 13:18> History of Present Illness - History of Present Illness History of Present Illness: Medicine consult note Patient is a 32F with PMH untreated HIV and drug abuse who presented to the ED for depression and suicidal ideation. Medicine was consulted for medical clearance. Patient repeatedly asking for antibiotic mouth rinse because she thinks she has an infection in her mouth. When asked about this, she says she has had very bad breath and "everyone can smell it", however she denies pain or any lesions in her mouth. Patient says she thinks she has an infection because she picks random things up off the ground and puts them in her mouth because she thinks it is heroin. Patient denies injury to her oral mucosa. Patient denies use of other drugs although her UDS is positive for cocaine as well. Patient says today she is feeling unwell because of withdrawal. Patient admits to body aches and nausea. Patient denies headaches, blury vision, chest pain, SOB, vomiting. Patient is uncooperative and additional ROS difficult to obtain. PMH: untreated HIV and drug abuse Meds: denies Allergies: denies PSH: denies FH: denies SH: denies smoking and alcohol use; admits to heroin use, UDS + for cocaine as well Review of Systems - Review of Systems All systems: reviewed and no additional remarkable complaints except (as per HPI ) Past Patient History - Infectious Disease Hx of Infectious Diseases: None - Tetanus Immunizations Tetanus Immunization: Unknown - Past Medical History & Family History Past Medical History?: Yes - Past Social History Smoking Status: Light Smoker < 10 Cigarettes Daily - CARDIAC Hx Cardiac Disorders: No Hx Hypertension: No - PULMONARY Hx Tuberculosis: No - NEUROLOGICAL HX Cerebrovascular Accident: No Hx Seizures: No - HEENT Hx HEENT Problems: No - RENAL Hx Chronic Kidney Disease: No - ENDOCRINE/METABOLIC Hx Endocrine Disorders: No Other/Comment: Prev h/o elevated prolactin - HEMATOLOGICAL/ONCOLOGICAL Hx Cancer: No - INTEGUMENTARY Hx Dermatological Problems: No - MUSCULOSKELETAL/RHEUMATOLOGICAL Hx Musculoskeletal Disorders: No Hx Falls: No - GASTROINTESTINAL Hx Gastrointestinal Disorders: No - GENITOURINARY/GYNECOLOGICAL Hx Sexually Transmitted Disorders: No - PSYCHIATRIC Hx Substance Use: Yes (denies) - SURGICAL HISTORY Hx Surgeries: No - ANESTHESIA Hx Anesthesia: No Meds Allergies/Adverse Reactions: Allergies Allergy/AdvReac Type Severity Reaction Status Date / Time No Known Allergies Allergy Verified 12/25/17 00:23 - Medications Medications: Current Medications Acetaminophen (Tylenol 325mg Tab) 650 mg PO Q4 PRN PRN Reason: Pain, moderate (4-7) Al Hydrox/Mg Hydrox/Simethicone (Maalox Plus 30 Ml) 30 ml PO DAILY PRN PRN Reason: Upset Stomach Clonidine HCl (Catapres) 0.1 mg PO TID PRN PRN Reason: opiod withdrawal Diphenhydramine HCl (Benadryl) 50 mg PO Q6 PRN PRN Reason: Insomnia Diphenhydramine HCl (Benadryl) 50 mg IM Q6 PRN PRN Reason: Agitation Divalproex Sodium (Depakote Dr (*Bid*)) 250 mg PO TID TOM PRN Reason: Protocol Last Admin: 12/25/17 11:14 Dose: 250 mg Haloperidol (Haldol) 5 mg PO Q6 PRN; Protocol PRN Reason: Agitation Haloperidol Lactate (Haldol) 5 mg IM Q6 PRN PRN Reason: Agitation Ibuprofen (Motrin Tab) 800 mg PO Q6 PRN PRN Reason: breakthrough pain Loperamide HCl (Imodium) 4 mg PO TID PRN PRN Reason: Diarrhea Lorazepam (Ativan) 2 mg IM Q6 PRN PRN Reason: Agitation Lorazepam (Ativan) 2 mg PO Q6 PRN; Protocol PRN Reason: Agitation Magnesium Hydroxide (Milk Of Magnesia) 30 ml PO DAILY PRN PRN Reason: Constipation Methadone HCl (Methadone) 20 mg PO BID [facility] Ondansetron HCl (Zofran Tab) 4 mg PO TID PRN PRN Reason: Nausea/Vomiting Risperidone (Risperdal Tab) 1 mg PO TID [facility] PRN Reason: Protocol Last Admin: 12/25/17 11:22 Dose: 1 mg Tramadol HCl (Ultram) 50 mg PO TID [facility] Last Admin: 12/25/17 11:15 Dose: 50 mg Zolpidem Tartrate (Ambien) 5 mg PO HS [facility] PRN Reason: Protocol Physical Exam - Constitutional Appears: Non-toxic, No Acute Distress - Head Exam Head Exam: ATRAUMATIC, NORMAL INSPECTION, NORMOCEPHALIC - Eye Exam Eye Exam: EOMI, Normal appearance - ENT Exam ENT Exam: Mucous Membranes Moist, Normal Oropharynx - Neck Exam Neck exam: Negative for: Tenderness - Respiratory Exam Respiratory Exam: Clear to Auscultation Bilateral, NORMAL BREATHING PATTERN. absent: Rales, Rhonchi, Wheezes - Cardiovascular Exam Cardiovascular Exam: RRR, +S1, +S2 - GI/Abdominal Exam GI & Abdominal Exam: Normal Bowel Sounds, Soft, Tenderness (diffuse ). absent: Distended - Extremities Exam Extremities exam: Positive for: normal inspection. Negative for: calf tenderness, pedal edema - Neurological Exam Neurological exam: Alert, Oriented x3 - Psychiatric Exam Psychiatric exam: Agitated - Skin Skin Exam: Dry, Intact, Normal Color, Warm Results - Vital Signs Recent Vital Signs: Last Vital Signs Temp 98.1 F 12/24/17 13:39 Pulse 61 12/24/17 18:49 Resp 18 12/24/17 18:49 BP 118/80 12/24/17 18:49 Pulse Ox 98 12/24/17 18:49 - Labs Result Diagrams: 12/24/17 13:30 12/24/17 13:30 Assessment & Plan - Assessment and Plan (Free Text) Assessment: Patient is a 32F with PMH untreated HIV and drug abuse who presented to the ED for depression and suicidal ideation. Plan: HIV * ID consulted (Dr. Trevino), recs appreciated Drug abuse * continue current management as per psych Depression and suicidal ideation * continue current management as per psych Patient clear from a medical standpoint for psychiatric treatment <Lauren Baker - Last Filed: 12/26/17 13:44> Results - Vital Signs Recent Vital Signs: Last Vital Signs Temp 98.1 F 12/24/17 13:39 Pulse 92 H 12/25/17 16:00 Resp 18 12/24/17 18:49 BP 121/72 12/25/17 16:00 Pulse Ox 98 12/24/17 18:49 - Labs Result Diagrams: 12/24/17 13:30 12/24/17 13:30 Attending/Attestation - Attestation I have personally seen and examined this patient.: Yes I have fully participated in the care of the patient.: Yes I have reviewed all pertinent clinical information: Yes Notes (Text): 12/25/17 32 year old female with past medical history of substance abuse, depression and reported HIV presented with depression and suicidal ideation. Continue with management for depression and withdrawal symptoms as per psychiatry. ID evaluation was requested for reported history of HIV, although HIV 4th gen ab was negative. Will follow up with ID recommendations. Thank you Dr. Seaman for allowing us to participate in the care of this patient. Lauren Baker MD Hospitalist.
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
[2017-12-25 17:07] VITALS: BP 121/72; PULSE 92
[2017-12-25] MEDS ORDERED: Benzocaine/Menthol (Cepacol) Lozenge MT PRN (17:55)
[2017-12-25] MEDS ORDERED: Aluminum Hydroxide/Magnesium 30 ML, DiphenhydrAMINE 75 MG, Lidocaine 2% Viscous 30 ML PO PRN (17:56)
--- NOTE | 2017-12-25 22:01 | CON ---
DATE: 12/25/2017 LOCATION: The patient is seen in psychiatric floor in [facility]. The patient admitted with a diagnosis of suicide. CHIEF COMPLAINT: Positive HIV. HISTORY OF PRESENT ILLNESS: The patient is a 32-year-old female who has been diagnosed with HIV now and the patient states for some years, she refused HIV care, is not followed up with anybody, and does not want to take HIV medications and states does not want to be taking care of her HIV. She denies any fever, any chills, any chest pain, shortness of breath, or cough. PAST MEDICAL HISTORY: Significant for depression, anxiety, panic disorder, hepatitis C, positive HIV, and history of suicide attempts in the past. PAST SURGICAL HISTORY: Noncontributory. ALLERGIES: THE PATIENT HAS NO KNOWN ALLERGIES. MEDICATIONS: She takes no medications at home. She has never cared for by anybody for her HIV. PHYSICAL EXAMINATION: VITAL SIGNS: Temperature is 98, respiratory rate of 18, blood pressure 120/70, and heart rate of 61. HEENT: Unremarkable. NECK: Supple. LUNGS: Decreased breath sounds. HEART: Normal S1 and S2. ABDOMEN: Soft. LABORATORY EXAMINATION: Reveals the patient's white count is 11,300, hemoglobin of 11, and platelets of 258. Chemistries reveals to be unremarkable. Elevated glucose of 137. Urinalysis is unremarkable. Toxicology reveals positive urine screen for opiates and positive for methadone and positive for cocaine. Review of old serology reveals the patient's HIV is nonreactive as of 02/2017, HIV antibody rapid screen was also nonreactive. The patient had negative RPR in the past. Hepatitis profile reveals hepatitis B surface antibody to be positive and HIV fourth generation and PCR has been ordered. ASSESSMENT ADN PLAN: A 32-year-old female with depression, anxiety, history of human immunodeficiency virus, and hepatitis C, who was admitted now with suicide ideation. Positive human immunodeficiency virus and positive suicide ideation. In the past, her human immunodeficiency virus has been negative. Both human immunodeficiency virus 1 rapid screen has been negative and human immunodeficiency virus 1 and 2 fourth generation has been negative. We will repeat human immunodeficiency virus testing, although at this time, no evidence of human immunodeficiency virus is noted and by the current testing, we will check on the repeat the fourth generation test HIV PCR and we will make further . Luisd Aniel MD [facility] # [id number]
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
== END 2017-12-25 19:01 | disposition left against medical advice (07) | DRG 430 ==
LOC: ED 12:58 → ERH 18:04 → PSYC 19:20
PROVIDERS: ADMIT Psychiatry & Neurology Psychiatry; ATTEND Psychiatry & Neurology Psychiatry
DX: F31.32 Bipolar disorder, current episode depressed, moderate (principal); R45.851 Suicidal ideations; F11.20 Opioid dependence, uncomplicated; B19.20 Unspecified viral hepatitis C without hepatic coma; F14.20 Cocaine dependence, uncomplicated; F60.2 Antisocial personality disorder; F63.9 Impulse disorder, unspecified; F25.9 Schizoaffective disorder, unspecified; F41.0 Panic disorder [episodic paroxysmal anxiety]; Z91.14 Patient's other noncompliance with medication regimen; Z91.19 Patient's noncompliance with other medical treatment and regimen; Z91.5 Personal history of self-harm

== ENCOUNTER 2018-05-16 14:33 | Emergency (ER) | payer MEDICAID ==
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
[2018-05-16 15:16] VITALS: BMI 25.8
== END 2018-05-16 15:20 | disposition left against medical advice (07) ==
LOC: ED 14:33
DX: T18.9XXA Foreign body of alimentary tract, part unspecified, initial encounter (principal); Z87.891 Personal history of nicotine dependence; F31.9 Bipolar disorder, unspecified